=== PATIENT | female | born 1990 | race Caucasian/White ===

== ENCOUNTER 2017-04-07 14:22 | Emergency (ER) | payer MEDICAID, SELFPAY ==
[2017-04-07 14:23] VITALS: BP 108/76; PULSE 83; RESP 14; TEMP 36.5; O2SAT 100; BMI 17.9
[2017-04-07] MEDS: Fluconazole 100 MG Tablet 150 MG PO (14:56)
[2017-04-07 14:57] LABS: White Blood Cells 0 SEEN /hpf (0-5)
[2017-04-07 15:04] LABS: Color, Urine Yellow (Yellow); Glucose, Dipstick Normal (Normal); Internal QC Validated? YES +Cl - CLEAR BKGD; Ketone-Dipstick 5 mg/dl (Negative); Leukocyte Esterase-Dipstick Negative /ul (Negative); Nitrite-Dipstick Negative (Negative); Occult Blood-Urine 25 /ul (Negative); Pregnancy, Urine Negative Negative; Protein-Dipstick Negative (Negative); Urine Bilirubin Dipstick Negative (Negative); Urine Clarity Clear (Clear); Urine Urobilinogen Normal (Normal)
[2017-04-07 15:09] LABS: Bacteria RARE /hpf (None Seen); Mucous, Urine 2+ /hpf (<or=2+); Red Blood Cells-Urine 0-5 SEEN /hpf (0-5); Squamous Epithelial Cells - UA 0-5 SEEN /hpf (5-10)
--- NOTE | 2017-04-07 15:13 | ED.DCSUM_ITS ---
- ER Visit Summary Date of Service: 04/07/17 Chief Complaint: Pelvic pain History of Present Illness: The patient is a [address] Wu and Dr. Alisha Pena. She reports that she has pelvic pain that began today. It is intermittent cramping pain lasts 5 seconds at a time. Zeta 10 at worst and she is pain-free currently. Is worsened by nothing and relieved by nothing. She reports she has vaginal bleeding today that began similar to her. And is now just spotting. She denies any vaginal discharge. No dysuria or frequency. She reports that she has had external vaginal itching similar to when she has had yeast infections in the past. She is taken to days of Monistat vaginal suppositories. Physical Examination: Vitals: Stable. Afebrile. General: Well-nourished and well-developed. Head: Normocephalic atraumatic. Neck: Supple, no lymphadenopathy. No JVD. Nontender. Cardiovascular: Regular rate and rhythm. No murmurs. Respiratory: No respiratory distress. Clear to auscultation bilaterally. Abdominal: Soft, nontender, nondistended, normal bowel sounds. No guarding, rebound, or peritoneal signs. Pelvic: Refused Back: Nontender. Extremities: Nontender, no edema. Skin: Normal color, no rash. Neurologic: Alert and oriented ?3. Cranial nerves II through XII are intact. Normal strength and sensation. Psych: Normal affect. Test Results: UA is normal. test is negative. GC and Chlamydia are negative. Emergency Department Course and Treatment: Patient is treated with Diflucan p.o. She refused pain medications. Treatment Plan: She will be discharged instructions to follow-up Dr. Alisha Pena in 5 days as previously scheduled. Return to the emergency department for any worsening symptoms. Disposition: To home in improved and stable condition. Impression: 1. Dysfunctional uterine bleeding. This note was generated with [employer] dictation software. It may contain incorrect words, spelling, and punctuation that were not noted in review of the chart prior to signing ED Disposition - Plan for ED Patient: Disposition: Home or Assisted Living Chief Complaint: Female C/O Instructions: ED Pelvic Pain [facility] Referrals: Morenita Mosqueda MD [STAFF PHYSICIAN] - Keep Ruth appointment
[2017-04-07 17:50] LABS: Chlamydia Trachomatis by PCR Negative (Negative); Neisserai gonorrhoeae by PCR Negative (Negative); Probe Check PASS; Sample Adequacy Control PASS; Specimen Processing Control PASS
== END 2017-04-07 15:38 | disposition home or self-care (01) ==
PROVIDERS: Emergency Provider Emergency Medicine; Family Provider Student in an Organized Health Care Education/Training Program; PCP Student in an Organized Health Care Education/Training Program
DX: N93.8 Other specified abnormal uterine and vaginal bleeding (principal); R10.2 Pelvic and perineal pain; R11.0 Nausea; N89.8 Other specified noninflammatory disorders of vagina
CPT/HCPCS: 81001; 81025; 87491; 87591; 99282

== ENCOUNTER 2017-04-22 13:05 | Emergency (ER) | payer MEDICAID, SELFPAY ==
[2017-04-22 13:06] VITALS: BP 123/77; PULSE 94; RESP 18; TEMP 36.4; O2SAT 100; BMI 17.9
--- NOTE | 2017-04-22 15:08 | ED.VISSUMM ---
- ER Visit Summary Date of Service: 04/22/17 Chief Complaint: Vaginal itching History of Present Illness: The patient is a 26 F presenting with vaginal itching ?3 weeks. Patient has been seen in the ED, urgent care, and her PHYSICAL DIRECTOR's office. She states she has had multiple tests including testing for STDs, UTIs, yeast infections. She states all of these tests have come back negative. She was treated for a yeast infection although she was told it was likely not a yeast infection. Her last period was 1 month ago. Denies dysuria, abdominal pain, vaginal discharge, vaginal bleeding. She states she has tried Benadryl for the itching. She denies any new soaps, detergents, or other irritants. Physical Examination: Vitals are stable. Patient is afebrile. Alert no acute distress. HEENT exam is unremarkable. Lungs are clear and equal bilaterally. Heart is regular rate and rhythm. Abdomen is soft nontender nondistended. No rebound or guarding. : mild vaginal discharge, no CMT, no adnexal tenderness, no rash Extremities are unremarkable. Skin is warm and dry. Remainder of exam is unremarkable. Emergency Department Course and Treatment: Urinalysis is unremarkable. HCG negative. Patient is advised to change her soaps and detergents. She is given prescription for Vistaril. She is advised to follow-up with her PHYSICAL DIRECTOR. Advised return to ED for worsening complaints. Disposition: Discharge home Impression: Vaginal itching This note was generated with [employer] dictation software. It may contain incorrect words, spelling, and punctuation that were not noted in review of the chart prior to signing ED Disposition - Plan for ED Patient: Chief Complaint: Female C/O Instructions: ED Pelvic Pain [facility] Prescriptions: HydrOXYzine ROB [Vistaril] 25 mg PO TID PRN PRN #20 capsule PRN Reason: Itching Referrals: Elfego Wu DO [Primary Care Provider] - Morenita Mosqueda MD [STAFF PHYSICIAN] -
--- NOTE | 2017-04-22 15:11 | ED.DCSUM_ITS ---
- ER Visit Summary Date of Service: 04/22/17 Chief Complaint: Vaginal itching History of Present Illness: The patient is a 26 F presenting with vaginal itching ?3 weeks. Patient has been seen in the ED, urgent care, and her PUPPY TRAINER' s office. She states she has had multiple tests including testing for STDs, UTIs, yeast infections. She states all of these tests have come back negative. She was treated for a yeast infection although she was told it was likely not a yeast infection. Her last period was 1 month ago. Denies dysuria, abdominal pain, vaginal discharge, vaginal bleeding. She states she has tried Benadryl for the itching. She denies any new soaps, detergents, or other irritants. Physical Examination: Vitals are stable. Patient is afebrile. Alert no acute distress. HEENT exam is unremarkable. Lungs are clear and equal bilaterally. Heart is regular rate and rhythm. Abdomen is soft nontender nondistended. No rebound or guarding. : mild vaginal discharge, no CMT, no adnexal tenderness, no rash Extremities are unremarkable. Skin is warm and dry. Remainder of exam is unremarkable. Emergency Department Course and Treatment: Urinalysis is unremarkable. HCG negative. Patient is advised to change her soaps and detergents. She is given prescription for Vistaril. She is advised to follow-up with her PUPPY TRAINER. Advised return to ED for worsening complaints. Disposition: Discharge home Impression: Vaginal itching This note was generated with [employer] dictation software. It may contain incorrect words, spelling, and punctuation that were not noted in review of the chart prior to signing ED Disposition - Plan for ED Patient: Chief Complaint: Female C/O Instructions: ED Pelvic Pain [facility] Prescriptions: HydrOXYzine ROB [Vistaril] 25 mg PO TID PRN PRN #20 capsule PRN Reason: Itching Referrals: Elfego Wu DO [Primary Care Provider] - Morenita Mosqueda MD [STAFF PHYSICIAN] -
[2017-04-22 15:20] LABS: Bacteria 0 SEEN /hpf (None Seen); Mucous, Urine 0 SEEN /hpf (<or=2+); Red Blood Cells-Urine 0 SEEN /hpf (0-5)
[2017-04-22 15:26] LABS: Color, Urine Yellow (Yellow); Glucose, Dipstick Normal (Normal); Ketone-Dipstick Negative (Negative); Leukocyte Esterase-Dipstick 25 /ul (Negative); Nitrite-Dipstick Negative (Negative); Occult Blood-Urine 10 /ul (Negative); Protein-Dipstick Negative (Negative); Urine Bilirubin Dipstick Negative (Negative); Urine Clarity Clear (Clear); Urine Urobilinogen Normal (Normal)
[2017-04-22 15:28] LABS: Internal QC Validated? YES +Cl - CLEAR BKGD; Pregnancy, Urine Negative Negative
--- NOTE | 2017-04-22 15:30 | ED.DEP ---
ED Disposition - Plan for ED Patient: Chief Complaint: Female C/O Instructions: ED Pelvic Pain [facility] Prescriptions: HydrOXYzine ROB [Vistaril] 25 mg PO TID PRN PRN #20 capsule PRN Reason: Itching Referrals: Elfego Wu DO [Primary Care Provider] - Morenita Mosqueda MD [STAFF PHYSICIAN] -
[2017-04-22 15:35] LABS: Squamous Epithelial Cells - UA 0-5 SEEN /hpf (5-10); White Blood Cells 0-5 SEEN /hpf (0-5)
[2017-04-22 16:00] VITALS: BP 114/70; PULSE 80; RESP 18; O2SAT 98
== END 2017-04-22 16:06 | disposition home or self-care (01) ==
LOC: ED 15:51
PROVIDERS: Emergency Provider Emergency Medicine; Family Provider Student in an Organized Health Care Education/Training Program; PCP Student in an Organized Health Care Education/Training Program
DX: N89.8 Other specified noninflammatory disorders of vagina (principal)
CPT/HCPCS: 81001; 81025; 99282

== ENCOUNTER → 2017-05-07 16:01 | Outpatient (CLI) | payer MEDICAID, SELFPAY ==
[2017-05-07 18:39] LABS: Bacteria 0 SEEN /hpf (None Seen)
[2017-05-07 19:53] LABS: Color, Urine Yellow (Yellow); Glucose, Dipstick Normal (Normal); Ketone-Dipstick Negative (Negative); Leukocyte Esterase-Dipstick 100 /ul (Negative); Nitrite-Dipstick Negative (Negative); Occult Blood-Urine 10 /ul (Negative); Protein-Dipstick 15 mg/dl (Negative); Urine Bilirubin Dipstick Negative (Negative); Urine Clarity Clear (Clear); Urine Urobilinogen Normal (Normal)
[2017-05-07 20:00] LABS: Mucous, Urine 1+ /hpf (<or=2+); Red Blood Cells-Urine 0-5 SEEN /hpf (0-5); Squamous Epithelial Cells - UA 5-10 SEEN /hpf (5-10); White Blood Cells 0-5 SEEN /hpf (0-5)
[2017-05-07 23:31] LABS: Chlamydia Trachomatis by PCR Negative (Negative); Neisserai gonorrhoeae by PCR Negative (Negative); Probe Check PASS; Sample Adequacy Control PASS; Specimen Processing Control PASS
[2017-05-08 09:37] LABS: HIV - WCH Non-Reactive (Nonreactive)
[2017-05-09 14:39] LABS: HEPATITIS B SURFACE AG Negative (Negative); Hep B Surface Antibodies Reactive (.)
== END ==
PROVIDERS: Family Provider Student in an Organized Health Care Education/Training Program; PCP Student in an Organized Health Care Education/Training Program; Visit Provider Physician Assistant Surgical
DX: Z20.2 Contact with and (suspected) exposure to infections with a predominantly sexual mode of transmission (principal)
CPT/HCPCS: 36415; 86703; 86706; 87340

== ENCOUNTER → 2017-05-07 18:37 | Outpatient (CLI) | payer MEDICAID, SELFPAY | PROVIDERS: Family Provider Student in an Organized Health Care Education/Training Program; PCP Student in an Organized Health Care Education/Training Program; Visit Provider Physician Assistant Surgical | DX: Z20.2 Contact with and (suspected) exposure to infections with a predominantly sexual mode of transmission (principal) | CPT/HCPCS: 36415; 81001; 86703; 86706; 87086; 87088; 87110; 87140; 87340; 87491; 87591 ==

== ENCOUNTER → 2017-05-16 18:34 | Outpatient (CLI) | payer MEDICAID, SELFPAY | PROVIDERS: Family Provider Student in an Organized Health Care Education/Training Program; PCP Student in an Organized Health Care Education/Training Program; Visit Provider Obstetrics & Gynecology | DX: N76.0 Acute vaginitis (principal); N77.1 Vaginitis, vulvitis and vulvovaginitis in diseases classified elsewhere ==

== ENCOUNTER 2017-06-02 19:30 | Emergency (ER) | payer MEDICAID, SELFPAY ==
[2017-06-02 19:31] VITALS: BP 132/80; PULSE 112; RESP 24; TEMP 36.9; O2SAT 96; BMI 16.9
[2017-06-02] MEDS: Ondansetron 4 MG/2 ML Vial IV (20:14)
[2017-06-02] MEDS: 0.9% Normal Saline 1,000 ML 1000 ML IV (20:14)
[2017-06-02] MEDS: Ketorolac 15 MG/ML Vial IV (20:17)
[2017-06-02 20:23] LABS: Absolute Lymphocyte Count 1.73 X10^3/ul (0.83-4.51); Absolute Neutrophil Count 6.8 X10^3/uL (2.0-7.7); Basophil# 0.01 X10^3/uL; Basophil% 0.1 % (0-1); Hematocrit 45.2 % (37-47); Hemoglobin 15.2 g/dl (12.0-15.0); Lymphocyte # 1.73 X10^3/ul (4.0); Lymphocyte % 19.3 % (19-41); Mean Corp Hgb Conc 33.6 g/gl (32-36); Mean Corpuscular Hgb 32.1 pg (27.0-32.0); Mean Corpuscular Volume 95.6 fL (81-99); Mean Platelet Vol. 9.5 fl (6.2-12.0); Monocyte# 0.46 X10^3/uL; Monocyte% 5.1 % (0-10); Neutrophil # 6.77 X10^3/uL (2.7-7.7); Neutrophil % 75.4 % (47-70); POSITIVE COUNT NO; POSITIVE DIFFERENTIAL NO; POSITIVE MORPHOLOGY NO; Platelet Count 269 K/mm3 (150-450); RBC Distribution Width CV 13.1 % (11.6-14.6); RBC Distribution Width SD 45.6 fl (35.1-43.9); Red Blood Count 4.73 M/mm3 (4.2-5.4)
[2017-06-02 20:36] LABS: AST(SGOT) 18 U/L (15-37); Alanine Aminotransfer ALT/SGPT 20 U/L (13-56); Albumin, Serum 3.8 g/dL (3.2-5.0); Alkaline Phosphatase 64 U/L (45-117); Anion Gap 8 (5-15); BUN 12 mg/dL (7-18); BUN/Creat Ratio 15.8 RATIO (10-20); Bilirubin, Direct 0.15 mg/dL (0.00-0.30); Calcium,Total 8.5 mg/dL (8.5-10.1); Chloride 109 mmol/L (98-107); Creatinine, Serum 0.76 mg/dL (0.55-1.02); EST Glomerular Filtration Rate 98 mL/min (>60); Est Glom Filt Rate - Afr Amer 119 mL/min (>60); Estimated Creatinine Clearance 77.35 ml/min; Globulin 4.2 g/dL (2.2-4.2); Glucose 88 mg/dL (74-106); Lipase 64 U/L (73-393); Potassium 3.4 mmol/L (3.5-5.1); Sodium Level 141 mmol/L (136-145)
[2017-06-02 20:53] LABS: Pregnancy, Serum, hCG Quali. NEGATIVE Negative (0-9 Nonpreg)
[2017-06-02 21:13] LABS: Amphetamine Urine VISTA NEGATIVE (<1000 ng/mL); Barbiturate Urine VISTA NEGATIVE (< 200 ng/mL); Benzodiazepine Urine VISTA NEGATIVE (< 200 ng/mL); Cocaine Urine VISTA NEGATIVE (< 300 ng/mL); Ecstacy Urine VISTA NEGATIVE (< 500 ng/mL); Methadone Urine VISTA NEGATIVE (< 300 ng/mL); PCP Urine VISTA NEGATIVE (< 25 ng/mL); THC Urine VISTA NEGATIVE (< 50 ng/mL); Vista UDS pH Range 5
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
[2017-06-02 22:50] VITALS: BP 100/60; PULSE 89; RESP 15; O2SAT 99
[2017-06-02] MEDS: Ondansetron ODT 4 MG Tablet PO (22:56)
== END 2017-06-02 22:59 | disposition home or self-care (01) ==
PROVIDERS: Emergency Provider Emergency Medicine; Family Provider Student in an Organized Health Care Education/Training Program; PCP Student in an Organized Health Care Education/Training Program
DX: R11.2 Nausea with vomiting, unspecified (principal); R42 Dizziness and giddiness; R10.816 Epigastric abdominal tenderness; R10.819 Abdominal tenderness, unspecified site
CPT/HCPCS: 80048; 80076; 80307; 83690; 84703; 85025; 96361; 96365; 96375; 99283; J7030; A4216; J2405; J3490

== ENCOUNTER 2017-09-30 12:51 | Emergency (ER) | payer MEDICAID, SELFPAY ==
[2017-09-30 12:53] VITALS: BP 117/80; PULSE 89; RESP 18; TEMP 36.6; O2SAT 98; BMI 19.2
--- NOTE | 2017-09-30 13:35 | ED.VISSUMM ---
- ER Visit Summary Date of Service: 09/30/17 Chief Complaint: Headache, nausea vomiting History of Present Illness: The patient is a 27 F who presents with the above symptoms. She states this started yesterday. She had a headache last night and tried Excedrin but it did not help. She had some nausea and vomiting as well as diarrhea today. No urinary symptoms. She denies any abdominal pain with this. She has not had a fever. Physical Examination: Vital signs reviewed. HEENT exam unremarkable. Heart is regular rate and rhythm without murmurs. Lungs are clear to auscultation. Abdomen is soft and nontender. Extremities reveal no edema. Skin exam normal. Neurologic exam normal. Test Results: Urinalysis reveals no infection or blood. HCG negative Emergency Department Course and Treatment: Patient was given Compazine, Benadryl and saline. She feels much better. She will be discharged with naproxen and Zofran ODT. Will follow up with her PCP Treatment Plan: [] Disposition: Discharge Impression: Migraine headache This note was generated with [employer] dictation software. It may contain incorrect words, spelling, and punctuation that were not noted in review of the chart prior to signing ED Disposition - Plan for ED Patient: Chief Complaint: Nausea/Vomiting/Diarrhea Referrals: Elfego Wu DO [Primary Care Provider] -
[2017-09-30] MEDS: 0.9% Normal Saline 1,000 ML 999 ML IV (13:47)
[2017-09-30] MEDS: DiphenhydrAMINE 50 MG/ML Syringe 25 MG IV (13:50)
[2017-09-30] MEDS: proCHLORPERazine 10 MG/2 ML Vial IV (13:50)
[2017-09-30 14:32] LABS: Bacteria 0 SEEN /hpf (None Seen); Red Blood Cells-Urine 0 SEEN /hpf (0-5); White Blood Cells 0 SEEN /hpf (0-5)
[2017-09-30 14:46] LABS: Color, Urine Yellow (Yellow); Glucose, Dipstick Normal (Normal); Ketone-Dipstick 50 mg/dl (Negative); Leukocyte Esterase-Dipstick Negative /ul (Negative); Nitrite-Dipstick Negative (Negative); Occult Blood-Urine 10 /ul (Negative); Protein-Dipstick 15 mg/dl (Negative); Urine Bilirubin Dipstick Negative (Negative); Urine Clarity Clear (Clear); Urine Urobilinogen Normal (Normal); Urine pH 6.5 (5.0 - 8.0)
[2017-09-30 14:56] LABS: Internal QC Validated? YES +Cl - CLEAR BKGD; Pregnancy, Urine Negative Negative
--- NOTE | 2017-09-30 14:59 | ED.DEP ---
ED Disposition - Plan for ED Patient: Disposition: Home or Assisted Living Chief Complaint: Nausea/Vomiting/Diarrhea Instructions: ED Diet Vomiting Diarrhea Prescriptions: Ondansetron [Zofran Odt] 4 mg PO Q8H PRN PRN #10 tab PRN Reason: Nausea Naproxen [Naprosyn] 500 mg PO BID PRN #20 tab Referrals: Elfego Wu DO [Primary Care Provider] -
[2017-09-30 15:05] LABS: Mucous, Urine 1+ /hpf (<or=2+); Squamous Epithelial Cells - UA 0-5 SEEN /hpf (5-10)
[2017-09-30 15:14] VITALS: BP 110/78; PULSE 80; RESP 14; O2SAT 98
[2017-09-30 15:15] VITALS: BP 97/54; PULSE 89; RESP 13; O2SAT 100
== END 2017-09-30 15:15 | disposition home or self-care (01) ==
PROVIDERS: Emergency Provider Emergency Medicine; Family Provider Student in an Organized Health Care Education/Training Program; PCP Student in an Organized Health Care Education/Training Program
DX: G43.909 Migraine, unspecified, not intractable, without status migrainosus (principal)
CPT/HCPCS: 81001; 81025; 96361; 96374; 96375; 99282; J7030; A4216

== ENCOUNTER 2017-10-31 12:26 | Emergency (ER) | payer MEDICAID, SELFPAY ==
[2017-10-31 12:26] VITALS: BP 117/81; PULSE 75; RESP 16; TEMP 36.4; O2SAT 99; BMI 18.6
[2017-10-31 12:58] LABS: Bacteria 0 SEEN /hpf (None Seen); Mucous, Urine 0 SEEN /hpf (<or=2+); Red Blood Cells-Urine 0 SEEN /hpf (0-5); Squamous Epithelial Cells - UA 0 SEEN /hpf (5-10); White Blood Cells 0 SEEN /hpf (0-5)
[2017-10-31 13:00] LABS: Color, Urine Yellow (Yellow); Glucose, Dipstick Normal (Normal); Ketone-Dipstick 5 mg/dl (Negative); Leukocyte Esterase-Dipstick 25 /ul (Negative); Nitrite-Dipstick Negative (Negative); Occult Blood-Urine 25 /ul (Negative); Protein-Dipstick Negative (Negative); Specific Gravity, Urine 1.015 (1.002-1.030); Urine Bilirubin Dipstick Negative (Negative); Urine Clarity Clear (Clear); Urine Urobilinogen Normal (Normal); Urine pH 6.5 (5.0 - 8.0)
[2017-10-31 13:01] LABS: Internal QC Validated? YES +Cl - CLEAR BKGD; Pregnancy, Urine Negative Negative
--- NOTE | 2017-10-31 15:26 | ED.DCSUM_ITS ---
- ER Visit Summary Date of Service: 10/31/17 Chief Complaint: Nausea History of Present Illness: The patient is a 27 F presenting with 2 days of nausea without vomiting or diarrhea. No abdominal pain. No pelvic pain or vaginal bleeding. No urinary symptoms. No headaches or confusion. No recent travel or sick contacts. No fever or chills. Physical Examination: Vitals are within normal limits. She is not in distress. Mucous membranes are moist. Neck is supple. No meningeal findings. Heart tones are regular and without murmur. Lungs are clear bilaterally. Abdomen is soft and nontender. She has no focal or lateralizing neuro findings. She has no rash. No petechiae. Strong pulses in all extremities. Mental status examination is normal. Test Results: HCG is negative. Urinalysis essentially unremarkable except for ketones and trace blood. Emergency Department Course and Treatment: She has no urinary symptoms. No back pain. No abdominal pain or tenderness. Exact cause of her nausea is not clear. She was observed here and feels much better. I will treat her with a short course of Zofran and she will follow up closely with her doctor for further testing and return here if any worse. She was instructed to return if she develops any abdominal pain, fever, or other concerning symptoms. Treatment Plan: Zofran as needed Disposition: Home in stable condition Impression: Initial encounter nausea of uncertain etiology This note was generated with [employer] dictation software. It may contain incorrect words, spelling, and punctuation that were not noted in review of the chart prior to signing ED Disposition - Plan for ED Patient: Chief Complaint: Nausea/Vomiting Instructions: ED Nausea Vomiting Prescriptions: Ondansetron HCl [Zofran] 4 mg PO TID PRN #15 tablet PRN Reason: Nausea Referrals: Elfego Wu DO [Primary Care Provider] - As soon as possible
[2017-10-31 15:31] VITALS: BP 108/69; PULSE 75; RESP 16; O2SAT 98
== END 2017-10-31 15:32 | disposition home or self-care (01) ==
LOC: ED 13:01
PROVIDERS: Emergency Provider Emergency Medicine; Family Provider Student in an Organized Health Care Education/Training Program; PCP Student in an Organized Health Care Education/Training Program
DX: R11.0 Nausea (principal); G43.909 Migraine, unspecified, not intractable, without status migrainosus
CPT/HCPCS: 81001; 81025; 99282

== ENCOUNTER 2018-01-20 09:08 | Emergency (ER) | payer MEDICAID, SELFPAY ==
[2018-01-20 09:09] VITALS: BP 140/83; PULSE 71; RESP 18; TEMP 36.2; O2SAT 99; BMI 18.3
--- NOTE | 2018-01-20 09:23 | CT_ITS ---
STUDY: CT ABDOMEN AND PELVIS WITH CONTRAST REASON FOR EXAM: Female, 27 years old. Lower abdominal pain with radiation towards the back. RADIATION DOSAGE (If Supplied By Facility): CTDIvol = ( 5.78 ) mGy, DLP = ( 224.89 ) mGycm TECHNIQUE: Transaxial images were obtained from the dome of the diaphragm to the symphysis pubis with oral contrast. 75ml ml of Isovue 300 contrast was administered. Sagittal and coronal images were reconstructed. Individualized dose optimization techniques were used for this CT. COMPARISON: None. FINDINGS: The visualized lung bases are unremarkable. The visualized portions of the heart are within normal limits. Normal liver. Normal gallbladder and extrahepatic biliary system. Normal spleen. Normal pancreas. Normal bilateral adrenal glands. Normal right kidney. Normal left kidney. Normal visualized stomach. Normal small intestine. Normal colon. The appendix is visualized and appears normal. Normal abdominal aorta. Normal inferior vena cava. Normal retroperitoneum. Normal urinary bladder. Small amount of free fluid in the cul-de-sac. Dominant follicle in the right ovary measuring 1.2 cm x 1.4 cm. Follicles are also seen in the left ovary. There is a small umbilical hernia containing fat. Normal osseous structures. CT/Abdomen/Pelvis WITH Contrast IMPRESSION: Follow-up are seen in both ovaries more prominent on the right side. Small amount of free fluid in the cul-de-sac. Electronically Signed: Juan J Mariano MD at 11:18 EST Tel [phone], Service support ,
--- NOTE | 2018-01-20 09:32 | ED.DCSUM_ITS ---
- ER Visit Summary Date of Service: 01/20/18 Chief Complaint: Abdominal pain History of Present Illness: The patient is a 27 F who states this morning she had a sudden onset periumbilical pain described as sharp and severe that radiated both sides and into her lower back. She notes nausea when the pain was severe. Pain is worse with movement and with car ride. Last menstrual period January 02 and was a normal cycle for her. She is on oral contraceptives. No significant surgical history or medical history. No history of ovarian cyst. Last bowel movement was yesterday and normal per her. She states this feels a little bit like she needs to have a bowel movement and tried but did not. She states that this seems more severe than that type of sensation. She is under care of her family doctor for a rash on her arms that intermittently flare. No formal diagnosis has been given Physical Examination: Afebrile vital signs are stable Gen: Well-nourished well-developed Head: Normocephalic atraumatic Eyes: Perrl EOMI ENT: TMs clear no rhinorrhea moist mucous membranes Neck: Supple no lymphadenopathy no JVD nontender CVS: Regular rate rhythm no murmurs normal S1-S2 Respiratory: No distress clear to auscultation bilaterally chest nontender Abdomen: Soft to palpation periumbilical region without rebound nondistended normal bowel sounds no masses Back: Nontender Extremity: Nontender no edema Skin: Normal color no rash Neuro: alert orientated ?3 CN II-XII intact normal strength sensation reflexes gait cerebellar Psych: Normal affect normal mood Test Results: CBC CMP lipase urine test were negative. CT abdomen pelvis showed no acute findings. Emergency Department Course and Treatment: Patient be discharged home with supportive care. I believe a lot of her symptoms are related to the large amount of gas she has. Patient was given return instructions and notes understanding. Impression: 1. Acute abdominal pain This note was generated with [employer] dictation software. It may contain incorrect words, spelling, and punctuation that were not noted in review of the chart prior to signing ED Disposition - Plan for ED Patient: Disposition: Home or Assisted Living Chief Complaint: Abd Pain Instructions: ED Abdominal Pain Unkn Cause Referrals: Elfego Wu, [Primary Care Provider] - 1-2 Days if not improving
[2018-01-20] MEDS: Ondansetron 4 MG/2 ML Vial IV (09:42)
[2018-01-20] MEDS: Ketorolac 30 MG/ML Syringe IV (09:42)
[2018-01-20 09:59] LABS: Absolute Lymphocyte Count 2.01 X10^3/ul (0.83-4.51); Basophil# 0.01 X10^3/uL; Basophil% 0.2 % (0-1); Eosinophil# 0.05 X10^3/uL; Eosinophils% 1.1 % (0-5); Hematocrit 41.3 % (37-47); Hemoglobin 14.2 g/dl (12.0-15.0); Lymphocyte # 2.01 X10^3/ul (4.0); Lymphocyte % 44.8 % (19-41); Mean Corp Hgb Conc 34.4 g/gl (32-36); Mean Corpuscular Hgb 31.6 pg (27.0-32.0); Mean Corpuscular Volume 91.8 fL (81-99); Mean Platelet Vol. 9.9 fl (6.2-12.0); Monocyte# 0.42 X10^3/uL; Monocyte% 9.4 % (0-10); Neutrophil # 1.99 X10^3/uL (2.7-7.7); Neutrophil % 44.3 % (47-70); Platelet Count 208 K/mm3 (150-450); RBC Distribution Width CV 12.6 % (11.6-14.6); RBC Distribution Width SD 42.2 fl (35.1-43.9); White Blood Count 4.5 K/mm3 (4.4-11.0)
[2018-01-20 10:05] LABS: POSITIVE COUNT NO; POSITIVE DIFFERENTIAL NO; POSITIVE MORPHOLOGY NO
[2018-01-20 10:11] LABS: ALB/GLOB Ratio 0.9 RATIO (0.9-2.4); AST(SGOT) 19 U/L (15-37); Alanine Aminotransfer ALT/SGPT 23 U/L (13-56); Albumin, Serum 3.5 g/dL (3.2-5.0); Alkaline Phosphatase 69 U/L (45-117); Anion Gap 6 (5-15); BUN 10 mg/dL (7-18); BUN/Creat Ratio 15.7 RATIO (10-20); Calcium,Total 8.4 mg/dL (8.5-10.1); Chloride 106 mmol/L (98-107); Creatinine, Serum 0.64 mg/dL (0.55-1.02); EST Glomerular Filtration Rate 119 mL/min (>60); Est Glom Filt Rate - Afr Amer 144 mL/min (>60); Estimated Creatinine Clearance 95.38 ml/min; Globulin 3.7 g/dL (2.2-4.2); Glucose 86 mg/dL (74-106); Lipase 80 U/L (73-393); Potassium 3.5 mmol/L (3.5-5.1); Protein, Total 7.2 g/dL (6.4-8.2); Sodium Level 138 mmol/L (136-145)
[2018-01-20 10:22] LABS: Color, Urine Yellow (Yellow); Glucose, Dipstick Normal (Normal); Internal QC Validated? YES +Cl - CLEAR BKGD; Ketone-Dipstick Negative (Negative); Leukocyte Esterase-Dipstick 25 /ul (Negative); Nitrite-Dipstick Negative (Negative); Occult Blood-Urine 25 /ul (Negative); Protein-Dipstick Negative (Negative); Specific Gravity, Urine 1.015 (1.002-1.030); Urine Bilirubin Dipstick Negative (Negative); Urine Clarity Sl. Cloudy (Clear); Urine Urobilinogen Normal (Normal)
[2018-01-20 10:25] LABS: Pregnancy, Urine Negative Negative
[2018-01-20 10:33] LABS: Bacteria 1+ /hpf (None Seen); Mucous, Urine 1+ /hpf (<or=2+); Red Blood Cells-Urine 0-5 SEEN /hpf (0-5); Squamous Epithelial Cells - UA 0-5 SEEN /hpf (5-10); White Blood Cells 0-5 SEEN /hpf (0-5)
[2018-01-20 11:10] VITALS: RESP 18
== END 2018-01-20 12:29 | disposition home or self-care (01) ==
PROVIDERS: Emergency Provider Emergency Medicine; Family Provider Student in an Organized Health Care Education/Training Program; PCP Student in an Organized Health Care Education/Training Program
DX: R10.33 Periumbilical pain (principal); M54.5 Low back pain; R11.0 Nausea; R21 Rash and other nonspecific skin eruption; Z79.3 Long term (current) use of hormonal contraceptives
CPT/HCPCS: 74177; 80053; 81001; 81025; 83690; 85025; 96374; 96375; 99283; Q9967; A4216; J2405

== ENCOUNTER → 2018-02-18 15:23 | Outpatient (CLI) | payer MEDICAID, SELFPAY ==
[2018-01-20 09:09] VITALS: BMI 18.3
== END ==
PROVIDERS: Visit Provider Obstetrics & Gynecology
DX: N76.1 Subacute and chronic vaginitis (principal); N77.1 Vaginitis, vulvitis and vulvovaginitis in diseases classified elsewhere
CPT/HCPCS: 87070; 87075; 87076; 87205

== ENCOUNTER → 2018-03-21 13:58 | Outpatient (CLI) | payer MEDICAID, SELFPAY | PROVIDERS: Visit Provider Obstetrics & Gynecology | DX: N76.1 Subacute and chronic vaginitis (principal) | CPT/HCPCS: 87070; 87075; 87077; 87205 ==

== ENCOUNTER 2018-04-24 12:15 | Emergency (ER) | payer MEDICAID, SELFPAY ==
[2018-04-24 12:17] VITALS: BP 149/95; PULSE 94; RESP 18; TEMP 36.8; O2SAT 100; BMI 18.4
--- NOTE | 2018-04-24 13:05 | ED.DCSUM_ITS ---
- ER Visit Summary Date of Service: 04/24/18 Chief Complaint: Vaginal itching History of Present Illness: The patient is a 27 F urgency department vaginal itching. Patient states that she was recently treated for bacterial vaginosis. She states shortly thereafter, she began have some vaginal itching and some vaginal pain. She states she called her PRIMARY CARE PROVIDER. She was given Diflucan. States normally, she gets yeast, it does resolve almost immediately. She took it does not feel any better. She has had been having some scant vaginal discharge. She is been sexually active for the first time in over a year. She denies any bleeding. She denies any urinary symptoms. Physical Examination: Vital signs reviewed General: Well-nourished, well-developed Head: Normocephalic, atraumatic Eyes: Pupils equal and reactive, extraocular muscles intact Neck, supple, no lymphadenopathy Heart: Regular rate and rhythm Respiratory: No distress, clear bilaterally Abdomen: Soft, nontender, nondistended, no peritoneal signs Back: Nontender Extremities: Nontender, no edema, no cords Skin: Normal color no rash Neuro: Alert and oriented, no focal or lateralizing deficits Test Results: [] Emergency Department Course and Treatment: [The patient symptoms do seem most consistent with yeast vaginitis. Urine was obtained. There is no evidence of infection. was negative. Pelvic exam was done with female nurse bin operator. The patient does have thick white adherent plaques on the introitus consistent with yeast. There is no excoriation. There is no discharge from the cervix. GC and gonorrhea were obtained but are still pending. I did discuss this with the patient. She does not want to wait for the results. She is really had no other symptoms were I feel she needs treated as she is already been treated recently. The patient will be discharged home with Diflucan prescription. Treatment Plan: [] Disposition: Discharge Impression: Yeast vaginitis This note was generated with [employer] dictation software. It may contain incorrect words, spelling, and punctuation that were not noted in review of the chart prior to signing ED Disposition - Plan for ED Patient: Instructions: Vaginal Infection: Yeast (Candidiasis) Prescriptions: Fluconazole [Diflucan] 150 mg PO X1 #1 tab Referrals: Kimi Paige MD [STAFF PHYSICIAN] -
[2018-04-24 13:15] LABS: Bacteria 0 SEEN /hpf (None Seen); Mucous, Urine 0 SEEN /hpf (<or=2+); Red Blood Cells-Urine 0 SEEN /hpf (0-5); Squamous Epithelial Cells - UA 0 SEEN /hpf (5-10); White Blood Cells 0 SEEN /hpf (0-5)
[2018-04-24 13:18] LABS: Color, Urine Yellow (Yellow); Glucose, Dipstick Normal (Normal); Ketone-Dipstick Negative (Negative); Leukocyte Esterase-Dipstick 25 /ul (Negative); Nitrite-Dipstick Negative (Negative); Occult Blood-Urine Negative /ul (Negative); Protein-Dipstick Negative (Negative); Urine Bilirubin Dipstick Negative (Negative); Urine Clarity Clear (Clear); Urine Urobilinogen Normal (Normal)
[2018-04-24 13:24] LABS: Internal QC Validated? YES +Cl - CLEAR BKGD; Pregnancy, Urine Negative Negative
[2018-04-24 15:53] LABS: Chlamydia Trachomatis by PCR Negative (Negative); Neisserai gonorrhoeae by PCR Negative (Negative); Probe Check PASS; Sample Adequacy Control PASS; Specimen Processing Control PASS
== END 2018-04-24 14:53 | disposition home or self-care (01) ==
PROVIDERS: Emergency Provider Emergency Medicine; Family Provider Student in an Organized Health Care Education/Training Program; PCP Student in an Organized Health Care Education/Training Program
DX: B37.3 Candidiasis of vulva and vagina (principal)
CPT/HCPCS: 81001; 81025; 87491; 87591; 99282

== ENCOUNTER 2018-07-07 20:21 | Emergency (ER) | payer MEDICAID, SELFPAY ==
[2018-07-07 20:22] VITALS: BP 121/75; PULSE 92; RESP 18; TEMP 36.7; O2SAT 99; BMI 18.6
--- NOTE | 2018-07-07 20:48 | ED.DCSUM_ITS ---
- ER Visit Summary Date of Service: 07/07/18 Chief Complaint: Rash History of Present Illness: The patient is a 28 F states she went tanning and after obtaining she applied lotion on her body. In Saturday she developed a rash. Says it itches. It is basically on her chest and neck abdomen upper and lower extremities. No prior history. No known allergies. She is currently on no medications. Physical Examination: Young female no acute distress. Vital signs are stable afebrile. HEENT exam unremarkable. No swelling of her lips or tongue. Neck as the rash which is raised. Consistent with a contact dermatitis. Lungs clear to auscultation bilaterally. Heart regular rhythm no murmur. Abdomen soft and nontender. Patient is moving all 4 extremities. She is a red raised rash in both upper and lower extremities with a contact dermatitis. Neurologically she is awake and alert. Test Results: None Emergency Department Course and Treatment: Rash consistent with allergic reaction. Started on prednisone 60 mg here and 40 mg a day for the next 6 days. Return if worse or follow-up if not improving. Treatment Plan: Prednisone daily for 6 days. Disposition: Discharge Impression: Acute skin rash secondary to allergic reaction This note was generated with [employer] dictation software. It may contain incorrect words, spelling, and punctuation that were not noted in review of the chart prior to signing ED Disposition - Plan for ED Patient: Referrals: Elfego Wu DO [Primary Care Provider] -
--- NOTE | 2018-07-07 20:48 | ED.DEP ---
ED Disposition - Plan for ED Patient: Disposition: Home or Assisted Living Instructions: ED Allergic Reaction General Other Prescriptions: Prednisone [Deltasone] 40 mg PO DAILY 6 Days tab Referrals: Elfego Wu DO [Primary Care Provider] - Additional Instructions: Rash consistent with allergic reaction most likely to the skin lotion. Prednisone daily until rash is gone. Follow-up with not improving.
[2018-07-07] MEDS: predniSONE 20 MG Tablet 60 MG PO (20:52)
== END 2018-07-07 20:55 | disposition home or self-care (01) ==
PROVIDERS: Emergency Provider Emergency Medicine; Family Provider Student in an Organized Health Care Education/Training Program; PCP Student in an Organized Health Care Education/Training Program
DX: R21 Rash and other nonspecific skin eruption (principal); T78.40XA Allergy, unspecified, initial encounter; X58.XXXA Exposure to other specified factors, initial encounter
CPT/HCPCS: 99283

== ENCOUNTER 2018-07-19 11:26 | Emergency (ER) | payer MEDICAID, SELFPAY ==
[2018-07-19 11:26] VITALS: BP 123/80; PULSE 89; RESP 16; TEMP 36.9; O2SAT 98; BMI 18.6
[2018-07-19 13:07] LABS: Bacteria 0 SEEN /hpf (None Seen); Mucous, Urine 0 SEEN /hpf (<or=2+); Red Blood Cells-Urine 0 SEEN /hpf (0-5); White Blood Cells 0 SEEN /hpf (0-5)
[2018-07-19 13:14] LABS: Color, Urine Yellow (Yellow); Glucose, Dipstick Normal (Normal); Ketone-Dipstick Negative (Negative); Leukocyte Esterase-Dipstick Negative /ul (Negative); Nitrite-Dipstick Negative (Negative); Occult Blood-Urine Negative /ul (Negative); Protein-Dipstick Negative (Negative); Urine Bilirubin Dipstick Negative (Negative); Urine Clarity Clear (Clear); Urine Urobilinogen Normal (Normal)
[2018-07-19 13:16] LABS: Internal QC Validated? YES +Cl - CLEAR BKGD; Pregnancy, Urine Negative Negative
[2018-07-19 13:21] LABS: Squamous Epithelial Cells - UA 0-5 SEEN /hpf (5-10)
--- NOTE | 2018-07-19 13:34 | ED.DCSUM_ITS ---
- ER Visit Summary Date of Service: 07/19/18 Chief Complaint: Vaginal discharge History of Present Illness: The patient is a 28 F who presents with a 4-day history of change in her physiologic vaginal discharge. She states the discharge seem to be more yellow in color and little bit heavier than normal. S he denies any itching or foul odor. She states after this started she developed some abdominal cramping. Last menstrual cycle was July 03 but was not typical for her. She did take Plan B 2 weeks ago. Physical Examination: Vital signs unremarkable. Patient sitting upright in bed no acute distress. Head neck examination normal. Heart is regular rate and rhythm. Lung sounds are clear. Abdomen is soft with no focal tenderness. Active bowel sounds are noted throughout. Patient deferred pelvic exam. She denies any lesions. Test Results: Urinalysis is normal. Urine test is negative. GC and Chlamydia were sent. If these return positive patient received a phone call in antibiotics will be ordered. Emergency Department Course and Treatment: I discussed the urinalysis and urine practiced with the patient. I advised her she would be notified if her gonorrhea or chlamydia test were positive. It may be that her hormone cycle is off after using the Plan B. She will follow with her SEWING MACHINE OPERATOR ZIPPER if not improving. Treatment Plan: [] Disposition: Discharge Impression: Vaginal discharge Addendum: Patient's chlamydia test returned positive. We have left a message to have her call the emergency department. She will have 2 options. She can return to the ED for meds only visit where she will receive Rocephin and Zithromax for we will call in a prescription to the pharmacy of her choice for cefixime and Zithromax. This note was generated with [email or web address] dictation software. It may contain incorrect words, spelling, and punctuation that were not noted in review of the chart prior to signing ED Disposition - Plan for ED Patient: Disposition: Home or Assisted Living Instructions: ED Pelvic Pain [facility] Referrals: Elfego Wu DO [Primary Care Provider] - Morenita Mosqueda MD [STAFF PHYSICIAN] - 1 Week if not improving
[2018-07-19 13:42] VITALS: BP 121/73; PULSE 79; RESP 18; O2SAT 98
[2018-07-19 15:07] LABS: Chlamydia Trachomatis by PCR POSITIVE (Negative); Neisserai gonorrhoeae by PCR Negative (Negative); Probe Check PASS; Sample Adequacy Control PASS; Specimen Processing Control PASS
--- NOTE | 2018-07-19 15:18 | ED.RN ---
Lab called to report positive chlamydia result. This RN called and left message with the pt to give us a call back.
--- NOTE | 2018-07-19 17:20 | ED.RN ---
PT WAS ASKED TO RETURN FOR MEDICATIONS PER DR. PRADO., VERBAL ORDERS WAS GIVEN FOR ROCEPHIN 250MG IM AND ZITHROMAX 1,000MG PO.
[2018-07-19] MEDS: Ceftriaxone 500 MG Vial 250 MG IM (17:44)
[2018-07-19] MEDS: Azithromycin 250 MG Tablet 1000 MG PO (17:47)
--- NOTE | 2018-07-19 17:58 | ED.RN ---
PT TOLERATED IM INJECTION, PT HAD NO FURTHER QUESTIONS. PT DEPARTED FROM ED.
== END 2018-07-19 13:43 | disposition home or self-care (01) ==
PROVIDERS: Emergency Provider Emergency Medicine; Family Provider Student in an Organized Health Care Education/Training Program; PCP Student in an Organized Health Care Education/Training Program
DX: N89.8 Other specified noninflammatory disorders of vagina (principal); R10.2 Pelvic and perineal pain
CPT/HCPCS: 81001; 81025; 87491; 87591; 96372; 99282

== ENCOUNTER 2018-08-06 22:08 | Emergency (ER) | payer MEDICAID, SELFPAY ==
[2018-08-06 22:10] VITALS: BP 116/76; PULSE 90; RESP 16; TEMP 36.7; O2SAT 100; BMI 17.9
--- NOTE | 2018-08-06 22:28 | ED.VISSUMM ---
- ER Visit Summary Date of Service: 08/06/18 Chief Complaint: Vaginal discharge History of Present Illness: The patient is a 28 F who presents with vaginal discharge. This is actually been going on for about 1 month. 3 weeks ago she was seen here in the emergency department and tested positive for chlamydia. She was treated with IM Rocephin and oral azithromycin. Her discharge improved but did not resolve. She also complains of some mild suprapubic abdominal discomfort. She would not really describe this as pain and thinks it may just be related to stress. She denies fevers chest pain shortness of breath nausea vomiting. She is basically just requesting to be retested for gonorrhea and chlamydia. Physical Examination: Afebrile vitals unremarkable Moist mucous membranes Heart regular rate and rhythm Lungs clear Abdomen soft nontender nondistended Test Results: Gonorrhea and Chlamydia negative Emergency Department Course and Treatment: Gonorrhea and Chlamydia negative as above. Patient advised to follow-up with gynecology and was discharged home. Treatment Plan: [] Disposition: Discharge Impression: Vaginal discharge This note was generated with [employer] dictation software. It may contain incorrect words, spelling, and punctuation that were not noted in review of the chart prior to signing ED Disposition - Plan for ED Patient: Referrals: Elfego Wu DO [Primary Care Provider] -
[2018-08-07 00:21] LABS: Chlamydia Trachomatis by PCR Negative (Negative); Neisserai gonorrhoeae by PCR Negative (Negative); Probe Check PASS; Sample Adequacy Control PASS; Specimen Processing Control PASS
--- NOTE | 2018-08-07 00:31 | ED.DEP ---
ED Disposition - Plan for ED Patient: Referrals: Elfego Wu DO [Primary Care Provider] - Kirstin Pena CNM [Certified Nurse Digital Account Coordinator] - Additional Instructions: You were seen today for vaginal discharge. Testing for gonorrhea and chlamydia was negative. I advised that he follow-up with gynecology. Return for any new or worsening symptoms.
== END 2018-08-07 00:37 | disposition home or self-care (01) ==
LOC: ED 22:32
PROVIDERS: Emergency Provider Emergency Medicine; Family Provider Student in an Organized Health Care Education/Training Program; PCP Student in an Organized Health Care Education/Training Program
DX: N89.8 Other specified noninflammatory disorders of vagina (principal); R10.30 Lower abdominal pain, unspecified; Z86.19 Personal history of other infectious and parasitic diseases
CPT/HCPCS: 87491; 87591; 99282

== ENCOUNTER 2018-10-14 19:55 | Emergency (ER) | payer MEDICAID, SELFPAY ==
[2018-10-14 19:55] VITALS: BP 124/82; PULSE 98; RESP 18; TEMP 36.4; O2SAT 97; BMI 18.5
[2018-10-14 22:34] LABS: Bacteria 0 SEEN /hpf (None Seen); Mucous, Urine 0 SEEN /hpf (<or=2+); Red Blood Cells-Urine 0 SEEN /hpf (0-5); Squamous Epithelial Cells - UA 0 SEEN /hpf (5-10); White Blood Cells 0 SEEN /hpf (0-5)
[2018-10-14 22:41] LABS: Color, Urine Yellow (Yellow); Glucose, Dipstick Normal (Normal); Ketone-Dipstick Negative (Negative); Leukocyte Esterase-Dipstick Negative /ul (Negative); Nitrite-Dipstick Negative (Negative); Occult Blood-Urine Negative /ul (Negative); Protein-Dipstick Negative (Negative); Specific Gravity, Urine 1.005 (1.002-1.030); Urine Bilirubin Dipstick Negative (Negative); Urine Clarity Sl. Cloudy (Clear); Urine Urobilinogen Normal (Normal)
[2018-10-14 22:45] LABS: Internal QC Validated? YES +Cl - CLEAR BKGD; Pregnancy, Urine Negative Negative
--- NOTE | 2018-10-14 22:45 | ED.DCSUM_ITS ---
History of Present Illness Chief Complaint: Female C/O Informant: Patient Onset: Days Context: Gradual Onset Timing: Continuous Current Severity: Severe Maximum Severity: Severe Narrative: Patient is a 28-year-old female with history of frequent yeast infections and BV presenting with worsening vaginal discharge and irritation. Patient states that her symptoms have been worsening for the past week or so. Patient states she is having intense itching and discomfort in her vaginal area. She denies any urinary symptoms such as dysuria or hematuria. Patient states she has not been sexually active for the past 3 weeks. Her last menstrual period was about 3 weeks ago. Patient also states that she is been tested multiple times for STDs and they been negative. She is followed up at urgent care as well as her [facility] [facility] with no resolution of her symptoms. Patient denies any associated fever or chills. She denies any other complaints at this time. Past Medical History - Allergies and Home Meds Allergies/Adverse Reactions: Allergies bacitracin [From Neosporin ([id number]-[id number]-[id number])] Adverse Reaction (Verified 10/14/18 19:57) Itching neomycin [From Neosporin ([id number])] Adverse Reaction (Verified 10/14/18 19:57) Itching nickel Adverse Reaction (Verified 10/14/18 19:57) Rash polymyxin B [From Neosporin ([id number])] Adverse Reaction (Verified 10/14/18 19:57) Itching Sulfa (Sulfonamide Antibiotics) Adverse Reaction (Verified 10/14/18 19:58) Itching Primary Care Physician: Elfego Wu DO [Primary Care Provider] - Smoking Status: Never smoker Review of Systems All systems negative except as indicated Genitourinary: Reports: - - Vaginal irritation Musculoskeletal: Reports: Back pain Physical Exam Vital Signs/Narrative: Vital Signs Temp Pulse Resp BP Pulse Ox 10/14/18 19:55 97.5 F L 98 18 124/82 H 97 Inital Vital Signs reviewed: Yes General: Well nourished, Well developed, No Acute Distress Head: Normocephalic, Atraumatic Eyes: Perrl, EOMI ENT: Moist mucous membranes, No rhinorrhea Neck: Supple, Nontender Cardiovascular: Regular rate, Regular rhythm, No murmurs Respiratory: No distress, CTA bilaterally, Chest nontender Abdomen: Soft, Nontender, Nondistended, Normal bowel sounds : - - Physiologic appearing vaginal discharge as well as white discharge consistent with yeast, no cervical motion tenderness, no adnexal tenderness, cervical erythema and irritation present, vulva appears normal Back: Nontender, Normal Inspection. Negative for: CVA tenderness Extremities: Nontender, No edema Skin: Normal color, No rash Neurological: Alert, Oriented x3, Cranial nerves II-XII grossly intact, Normal Strength, Normal Sensation Psychological: Normal affect, Normal Mood Diagnostic/Tx/Re-eval Laboratory Data 10/14/18 10/14/18 22:20 22:20 Urine Color Yellow Urine Clarity Sl. Cloudy Urine pH 7.0 Ur Specific [place] 1.005 Urine Protein Negative Urine Glucose (UA) Normal Urine Ketones Negative Urine Occult Blood Negative Urine Nitrite Negative Urine Bilirubin Negative Urine Urobilinogen Normal Ur Leukocyte Esterase Negative Urine RBC 0 SEEN Urine WBC 0 SEEN Ur Squamous Epith Cells 0 SEEN Urine Bacteria 0 SEEN Urine Mucus 0 SEEN Urine Test Negative - Medical Decision Making Patient is evaluated for worsening vaginal irritation. She seems to have recurrent episodes of yeast infections and other vaginal complaints. Urinalysis is normal and not consistent with UTI and I do not suspect pyelonephritis. I do not suspect pelvic inflammatory disease or tubo-ovarian abscess. Urine is negative. Patient be treated empirically for BV as well as candidiasis. She is encouraged to follow-up with her [employer] because this is a recurrent problem. She is counseled on signs symptoms requiring return to teri ency room. She is discharged home in stable condition. ED Disposition - Plan for ED Patient: Instructions: Vaginal Infection: Bacterial Vaginosis, Vaginal Infection: Yeast (Candidiasis) Prescriptions: Fluconazole 150 mg PO X1 #1 tab Prescription Printed metroNIDAZOLE 0.75% [Metrogel Vaginal] 5 applic VAGINAL QHS #7 tube Prescription Printed Referrals: Elfego Wu DO [Primary Care Provider] - Additional Instructions: Very important that you follow-up with your [facility] as this is a recurrent problem. You are given 1 dose of fluconazole in the ER which will treat the yeast infection. Take the second dose which was prescribed to you, in 1 week
[2018-10-14] MEDS: FLUCONAZOLE 150 MG TABLET PO (23:58)
[2018-10-14 23:59] VITALS: BP 117/79; PULSE 64; RESP 14; O2SAT 99
[2018-10-15 00:24] LABS: Chlamydia Trachomatis by PCR Negative (Negative); Neisserai gonorrhoeae by PCR Negative (Negative); Probe Check PASS; Sample Adequacy Control PASS; Specimen Processing Control PASS
== END 2018-10-14 23:59 | disposition home or self-care (01) ==
PROVIDERS: Emergency Provider Emergency Medicine; Family Provider Student in an Organized Health Care Education/Training Program; PCP Student in an Organized Health Care Education/Training Program
DX: N76.0 Acute vaginitis (principal); B37.3 Candidiasis of vulva and vagina
CPT/HCPCS: 81001; 81025; 87210; 87491; 87591; 99283

== ENCOUNTER 2019-09-13 13:52 | Outpatient (REF) | payer SELFPAY | END 2019-09-13 17:52 | disposition home or self-care (01) | LOC: EDREF 13:52 | PROVIDERS: PCP Student in an Organized Health Care Education/Training Program | DX: Z04.41 Encounter for examination and observation following alleged adult rape (principal) ==

== ENCOUNTER 2019-09-13 14:34 | Emergency (ER) | payer MEDICAID, SELFPAY ==
[2019-09-13 14:35] VITALS: BP 120/71; PULSE 100; RESP 16; TEMP 37.1; O2SAT 96; BMI 20.5
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
[2019-09-13] MEDS: Ceftriaxone 500 MG Vial 250 MG IM (14:57)
[2019-09-13] MEDS: [UNRECOGNIZED DRUG - OTHER] PO (14:57)
[2019-09-13] MEDS: metroNIDAZOLE 500 MG Tablet 2000 MG PO (14:57)
[2019-09-13] MEDS: Azithromycin 250 MG Tablet 1000 MG PO (15:01)
[2019-09-13] MEDS: Ondansetron ODT 4 MG Tablet 8 MG PO (15:14)
== END 2019-09-13 15:27 | disposition home or self-care (01) ==
PROVIDERS: Emergency Provider Emergency Medicine; PCP Student in an Organized Health Care Education/Training Program
DX: Z20.2 Contact with and (suspected) exposure to infections with a predominantly sexual mode of transmission (principal); R11.2 Nausea with vomiting, unspecified
CPT/HCPCS: 96372; 99283

== ENCOUNTER 2019-09-14 09:25 | Emergency (ER) | payer MEDICAID, SELFPAY ==
[2019-09-13 14:35] VITALS: BMI 20.5
[2019-09-14 09:26] VITALS: BP 124/90; PULSE 92; RESP 17; TEMP 36.4; O2SAT 98; BMI 20.5
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
[2019-09-14] MEDS: 0.9% Normal Saline 1,000 ML 1000 ML IV (09:44)
[2019-09-14] MEDS: Ondansetron 4 MG/2 ML Vial IV (09:44)
[2019-09-14] MEDS: Famotidine 200 MG/20 ML MDV 20 MG in 0.9% Normal Saline (Pres. free 8 ML 300 MG IV (09:46)
[2019-09-14 09:59] LABS: Internal QC Validated? YES +Cl - CLEAR BKGD; Pregnancy, Serum, hCG Quali. NEGATIVE Negative
[2019-09-14 10:02] LABS: Anion Gap 4 (5-15); BUN 14 mg/dL (7-18); BUN/Creat Ratio 16.1 RATIO (10-20); Calcium,Total 8.5 mg/dL (8.5-10.1); Chloride 104 mmol/L (98-107); Creatinine, Serum 0.87 mg/dL (0.55-1.02); EST Glomerular Filtration Rate 82 mL/min (>60); Est Glom Filt Rate - Afr Amer 99 mL/min (>60); Estimated Creatinine Clearance 76.14 ml/min; Glucose 117 mg/dL (74-106); Sodium Level 139 mmol/L (136-145)
[2019-09-14 10:42] VITALS: BP 122/90; PULSE 99; RESP 16; O2SAT 100
== END 2019-09-14 10:42 | disposition home or self-care (01) ==
PROVIDERS: Emergency Provider Emergency Medicine; PCP Student in an Organized Health Care Education/Training Program
DX: R11.2 Nausea with vomiting, unspecified (principal); E87.6 Hypokalemia; F17.200 Nicotine dependence, unspecified, uncomplicated
CPT/HCPCS: 80048; 84703; 96365; 96375; 99283; A4216; J2405; J3490

== ENCOUNTER 2019-10-05 20:18 | Emergency (ER) | payer MEDICAID, SELFPAY ==
[2019-10-05 20:18] VITALS: BP 106/88; PULSE 94; RESP 18; TEMP 36.3; O2SAT 95; BMI 20.1
--- NOTE | 2019-10-05 21:50 | EKG12_ITS ---
Test Reason : NAUSEA/VOMITING Blood Pressure : / mmHG Vent. Rate : 077 BPM Atrial Rate : 077 BPM P-R Int : 138 ms QRS Dur : 084 ms QT Int : 398 ms P-R-T Axes : 057 084 063 degrees QTc Int : 450 ms Normal sinus rhythm with sinus arrhythmia Normal ECG Confirmed by ELIZABETH MICHAEL, MICHELLE ([id number]), commissioning editor PAZ REAL ([id number]) on 10/07/2019 1:03:56 PM Referred By: Confirmed By:MICHELLE JOHNSON MD
[2019-10-05] MEDS: Ondansetron 4 MG/2 ML Vial IV (22:08)
[2019-10-05] MEDS: 0.9% Normal Saline 1,000 ML 1000 ML IV ×2 (22:08→22:51)
[2019-10-05 22:19] LABS: Absolute Lymphocyte Count 1.07 X10^3/uL (0.83-4.51); Absolute Neutrophil Count 11.6 X10^3/uL (2.0-7.7); Basophil# 0.02 X10^3/uL; Basophil% 0.2 % (0-1); Hematocrit 42.2 % (37-47); Hemoglobin 14.6 g/dL (12.0-15.0); Lymphocyte # 1.07 X10^3/ul (4.0); Lymphocyte % 8.1 % (19-41); Mean Corp Hgb Conc 34.6 g/dL (32-36); Mean Corpuscular Hgb 32.1 pg (27.0-32.0); Mean Corpuscular Volume 92.7 fL (81-99); Mean Platelet Vol. 9.9 fl (6.2-12.0); Monocyte# 0.57 X10^3/uL; Monocyte% 4.3 % (0-10); NRBC Flagged by Analyzer 0 % (0-5); Neutrophil # 11.58 X10^3/uL (2.7-7.7); Platelet Count 294 K/mm3 (150-450); RBC Distribution Width SD 41.5 fl (35.1-43.9); Red Blood Count 4.55 M/mm3 (4.2-5.4); White Blood Count 13.3 K/mm3 (4.4-11.0)
[2019-10-05 22:21] LABS: Anion Gap 7 (5-15); BUN 16 mg/dL (7-18); BUN/Creat Ratio 22.1 RATIO (10-20); Calcium,Total 8.9 mg/dL (8.5-10.1); Chloride 105 mmol/L (98-107); Creatinine, Serum 0.72 mg/dL (0.55-1.02); EST Glomerular Filtration Rate 102 mL/min (>60); Est Glom Filt Rate - Afr Amer 123 mL/min (>60); Estimated Creatinine Clearance 91.63 ml/min; Glucose 106 mg/dL (74-106); Potassium 3.3 mmol/L (3.5-5.1); Sodium Level 137 mmol/L (136-145)
[2019-10-05 22:51] LABS: Internal QC Validated? YES +Cl - CLEAR BKGD; Pregnancy, Serum, hCG Quali. NEGATIVE Negative
[2019-10-05 23:13] LABS: Bacteria 0 SEEN /hpf (None Seen); Mucous, Urine 0 SEEN /hpf (<or=2+); Squamous Epithelial Cells - UA 0 SEEN /hpf (5-10)
[2019-10-05 23:14] LABS: Color, Urine Yellow (Yellow); Glucose, Dipstick Normal (Normal); Leukocyte Esterase-Dipstick Negative /ul (Negative); Nitrite-Dipstick Negative (Negative); Occult Blood-Urine 10 /ul (Negative); Protein-Dipstick Negative (Negative); Specific Gravity, Urine 1.015 (1.002-1.030); Urine Bilirubin Dipstick Negative (Negative); Urine Clarity Clear (Clear); Urine Urobilinogen Normal (Normal); Urine pH 6.5 (5.0 - 8.0)
[2019-10-05 23:16] LABS: Ketone-Dipstick 150 mg/dl (Negative)
[2019-10-05 23:22] LABS: Red Blood Cells-Urine 0-5 SEEN /hpf (0-5); White Blood Cells 0-5 SEEN /hpf (0-5)
--- NOTE | 2019-10-05 23:39 | ED.DEP ---
ED Disposition - Plan for ED Patient: Instructions: ED Nausea Vomiting Adult Prescriptions: Ondansetron [Zofran Odt] 4 mg PO Q8H PRN PRN #10 tab PRN Reason: Nausea Prescription Printed Referrals: Elfego Wu DO [Primary Care Provider] -
--- NOTE | 2019-10-05 23:42 | ED.DCSUM_ITS ---
- ER Visit Summary Date of Service: 10/05/19 Chief Complaint: Vomiting and diarrhea History of Present Illness: The patient is a 29 F presenting with vomiting and diarrhea. Patient states this started today. She is unsure if this is related to her work environment. 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 She states throughout the day she felt overheated. She states she believes she was drinking enough water throughout the day. When she got home she started vomiting and started having diarrhea. She had dizziness and had a syncopal episode after one episode of vomiting. She denies blood in her emesis or stool. Denies fever. Denies abdominal pain. Denies possibility of . Denies other complaints. Physical Examination: Vitals are stable. Patient is afebrile. Alert no acute distress. HEENT exam dry mucous membranes Neck is supple. Lungs are clear and equal bilaterally. Heart is regular rate and rhythm. Abdomen is soft nontender nondistended. No guarding or rebound Extremities are unremarkable. Skin is warm and dry. No focal neurologic deficit. Remainder of exam is unremarkable. Emergency Department Course and Treatment: EKG is sinus rhythm rate of 77 with no acute ischemic changes. Patient was given IV fluids, Zofran. CBC, chemistries unremarkable other than white count 13.3, potassium 3.3. Urinalysis shows 0-5 white blood cells, positive ketones. hCG is negative. She is given potassium oral replacement. She is able to tolerate p.o. in the emergency room. She is feeling improved. She is advised to follow-up with her primary care physician. Advised return to ED if worsening complaints. Disposition: Discharge home Impression: Vomiting and diarrhea This note was generated with [employer] dictation software. It may contain incorrect words, spelling, and punctuation that were not noted in review of the chart prior to signing ED Disposition - Plan for ED Patient: Instructions: ED Nausea Vomiting Adult Prescriptions: Ondansetron [Zofran Odt] 4 mg PO Q8H PRN PRN #10 tab PRN Reason: Nausea Prescription Printed Referrals: Elfego Wu DO [Primary Care Provider] -
[2019-10-05 23:54] VITALS: BP 115/82; PULSE 98; RESP 16; O2SAT 100
== END 2019-10-06 00:02 | disposition home or self-care (01) ==
PROVIDERS: Emergency Provider Emergency Medicine; PCP Student in an Organized Health Care Education/Training Program
DX: R19.7 Diarrhea, unspecified (principal); R11.2 Nausea with vomiting, unspecified
CPT/HCPCS: 80048; 81001; 84703; 85025; 93005; 99285; J7030; A4216; J2405

== ENCOUNTER 2019-10-29 18:39 | Emergency (ER) | payer MEDICAID, SELFPAY ==
[2019-10-29 18:40] VITALS: BP 126/91; PULSE 98; RESP 18; TEMP 36.3; O2SAT 100; BMI 18.5
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
[2019-10-29] MEDS: Morphine 2 MG/ML Syringe IV (19:03)
[2019-10-29] MEDS: Ondansetron 4 MG/2 ML Vial IV (19:03)
[2019-10-29 19:11] LABS: Absolute Lymphocyte Count 2.08 X10^3/uL (0.83-4.51); Basophil# 0.02 X10^3/uL; Basophil% 0.3 % (0-1); Eosinophil# 0.05 X10^3/uL; Eosinophils% 0.6 % (0-5); Hematocrit 44.5 % (37-47); Hemoglobin 15.2 g/dL (12.0-15.0); Lymphocyte # 2.08 X10^3/ul (4.0); Lymphocyte % 26.2 % (19-41); Mean Corp Hgb Conc 34.2 g/dL (32-36); Mean Corpuscular Hgb 32.1 pg (27.0-32.0); Mean Corpuscular Volume 94.1 fL (81-99); Mean Platelet Vol. 9.4 fl (6.2-12.0); Monocyte# 0.78 X10^3/uL; Monocyte% 9.8 % (0-10); NRBC Flagged by Analyzer 0 % (0-5); Neutrophil % 62.8 % (47-70); Platelet Count 282 K/mm3 (150-450); RBC Distribution Width CV 12.3 % (11.6-14.6); Red Blood Count 4.73 M/mm3 (4.2-5.4)
[2019-10-29 19:19] LABS: International Normalized Ratio 1.1; Prothrombin Time (Protime)PT. 13.2 SECONDS (11.7-14.9)
[2019-10-29 19:20] LABS: Partial Thromboplast Time 25.5 Seconds (24.1-36.2)
[2019-10-29 19:36] LABS: Anion Gap 7 (5-15); BUN 11 mg/dL (7-18); BUN/Creat Ratio 13.1 RATIO (10-20); Calcium,Total 8.8 mg/dL (8.5-10.1); Chloride 101 mmol/L (98-107); Creatinine, Serum 0.84 mg/dL (0.55-1.02); EST Glomerular Filtration Rate 85 mL/min (>60); Est Glom Filt Rate - Afr Amer 103 mL/min (>60); Estimated Creatinine Clearance 74.61 ml/min; Glucose 131 mg/dL (74-106); Potassium 3.1 mmol/L (3.5-5.1); Sodium Level 137 mmol/L (136-145)
[2019-10-29 19:40] LABS: hCG Titer Quant., Serum < 1 mIU/mL (1-3)
[2019-10-29] MEDS: Metoclopramide 10 MG/2 ML Vial 5 MG IV (20:23)
[2019-10-29] MEDS: Ketorolac 15 MG/ML Vial IV (20:23)
[2019-10-29] MEDS: DiphenhydrAMINE 50 MG/ML Syringe 25 MG IV (20:24)
[2019-10-29 20:49] VITALS: BP 110/86; PULSE 78; RESP 16; O2SAT 98
== END 2019-10-29 21:10 | disposition home or self-care (01) ==
PROVIDERS: Emergency Provider Emergency Medicine; PCP Student in an Organized Health Care Education/Training Program
DX: G43.511 Persistent migraine aura without cerebral infarction, intractable, with status migrainosus (principal)
CPT/HCPCS: 70496; 80048; 84702; 85025; 85610; 85730; 96374; 96375; 99283; Q9967; A4216; J2405

== ENCOUNTER 2020-01-03 09:21 | Emergency (ER) | payer MEDICAID, SELFPAY ==
[2020-01-03 09:23] VITALS: BP 139/77; PULSE 89; RESP 16; TEMP 36.2; O2SAT 100; BMI 19.1
--- NOTE | 2020-01-03 09:47 | ED.DCSUM_ITS ---
History of Present Illness Chief Complaint: Headache Informant: Patient Onset: Today Current Severity: Moderate Maximum Severity: Moderate Narrative: Patient presents secondary to headache with mild nausea. She reports having frequent headaches over the past month. Her PCP has been checking blood work and trying some medications to prevent her headaches. She was seen here in October for a headache and had a normal CTA of the head at that time. - Past Medical History (1) Migraine Status: Chronic Past Medical History - Allergies and Home Meds Allergies/Adverse Reactions: Allergies bacitracin [From Neosporin ([id number])] Adverse Reaction (Verified 01/03/20 09:22) Itching neomycin [From Neosporin ([id number]-[id number])] Adverse Reaction (Verified 01/03/20 09:22) Itching nickel Adverse Reaction (Verified 01/03/20 09:22) Rash polymyxin B [From Neosporin ([id number])] Adverse Reaction (Verified 01/03/20 09:22) Itching Sulfa (Sulfonamide Antibiotics) Adverse Reaction (Verified 01/03/20 09:22) Itching Primary Care Physician: Elfego Wu DO [Primary Care Provider] - Prior records reviewed: Yes Surgical History: no surgical history Smoking Status: Never smoker Review of Systems General: Denies: Chills, Fever Eyes: Denies: Visual changes - bilaterally ENT: Denies: Bilateral ear pain Cardiovascular: Denies: Chest pain Respiratory: Denies: Dyspnea, Cough Gastrointestinal: Reports: Nausea. Denies: Abdominal pain, Vomiting Musculoskeletal: Denies: Swelling, Extremity Pain Neurological: Reports: Headache. Denies: Weakness, Parasthesia Hematologic: Denies: Easy bruising, Easy bleeding Allergy: Denies: Uticaria Physical Exam Vital Signs/Narrative: Vital Signs Temp Pulse Resp BP Pulse Ox 01/03/20 09:23 97.1 F L 89 16 139/77 H 100 Inital Vital Signs reviewed: Yes General: Well nourished, Well developed Head: Normocephalic ENT: Moist mucous membranes Neck: Supple Cardiovascular: Regular rate, Regular rhythm Respiratory: No distress, CTA bilaterally Abdomen: Soft, Nontender Skin: Normal color Neurological: Alert, Oriented x3, Normal Strength, Normal Sensation Psychological: Normal affect Diagnostic/Tx/Re-eval - Medical Decision Making Patient was given IV fluids along with Toradol, Reglan, and Benadryl. On repeat evaluation, patient does feel significantly improved. She will be given prescri ptions for the above-mentioned medications that she can take for breakthrough pain when her other medication is not helping her. She will follow-up with her PCP as scheduled. ED Disposition - Plan for ED Patient: Disposition: Home or Assisted Living Diagnosis: Migraine Instructions: ED, Migraine (Classical) Prescriptions: DiphenhydrAMINE [Benadryl] 50 mg PO BID PRN PRN #20 cap PRN Reason: Migraine Symptoms Transmission Status: Pending to [facility] [address] Metoclopramide [Reglan] 10 mg PO BID PRN PRN #20 tab PRN Reason: Migraine Symptoms Transmission Status: Pending to [facility] Ketorolac [Toradol] 10 mg PO BID PRN PRN #10 tab PRN Reason: Migraine Symptoms Transmission Status: Pending to [facility] [address] Referrals: Elfego Wu DO [Primary Care Provider] - 1 Week
[2020-01-03] MEDS: DiphenhydrAMINE 50 MG/ML Syringe 25 MG IV (10:04)
[2020-01-03] MEDS: 0.9% Normal Saline 1,000 ML 999 ML IV (10:05)
[2020-01-03] MEDS: Ketorolac 15 MG/ML Vial IV (10:06)
[2020-01-03] MEDS: Metoclopramide 10 MG/2 ML Vial 5 MG IV (10:07)
[2020-01-03 12:12] VITALS: BP 105/74; PULSE 81; RESP 16; O2SAT 99
--- NOTE | 2020-01-03 12:13 | ED.RN ---
THIS NURSE REVIEWED D/C INSTRUCTIONS WITH PT. PT VERBALIZED UNDERSTANDING OF INSTRUCTIONS. IV D/C. IV CATHETER INTACT. PT TOLERATED WELL. PT DENIES FURTHER NEEDS OR QUESTIONS AT THIS TIME
== END 2020-01-03 12:14 | disposition home or self-care (01) ==
PROVIDERS: Emergency Provider Emergency Medicine; PCP Student in an Organized Health Care Education/Training Program
DX: G43.909 Migraine, unspecified, not intractable, without status migrainosus (principal)
CPT/HCPCS: 96361; 96374; 96375; 99283

== ENCOUNTER 2020-01-22 18:08 | Emergency (ER) | payer MEDICAID, SELFPAY ==
[2020-01-22 18:09] VITALS: BP 125/90; PULSE 106; RESP 16; TEMP 35.9; O2SAT 97; BMI 19.3
--- NOTE | 2020-01-22 18:35 | ED.VIS.GEN ---
History of Present Illness Chief Complaint: Nausea/Vomiting Informant: Patient Onset: Days Context: Gradual Onset Narrative: Patient presents secondary to vomiting for the past 2 days and diarrhea today. She is complaining of bilateral leg pain over the past 3 days. She states it does not feel like cramps but does shoot up into her back. She had a single day with fever. She denies cough and congestion. She states she was tested for Covid yesterday at [facility] but is not sure if this was a PCR or rapid antigen test. She got results this morning that reported it was negative. She is now questioning if she may have influenza. - Past Medical History (1) Migraine Status: Chronic Past Medical History - Allergies and Home Meds Allergies/Adverse Reactions: Allergies bacitracin [From Neosporin ([id number])] Adverse Reaction (Verified 01/22/20 18:11) Itching neomycin [From Neosporin ([id number]-cwd-[id number])] Adverse Reaction (Verified 01/22/20 18:11) Itching nickel Adverse Reaction (Verified 01/22/20 18:11) Rash polymyxin B [From Neosporin ([id number]-qrv-[id number])] Adverse Reaction (Verified 01/22/20 18:11) Itching Sulfa (Sulfonamide Antibiotics) Adverse Reaction (Verified 01/22/20 18:11) Itching Primary Care Physician: Elfego Wu DO [Primary Care Provider] - Prior records reviewed: Yes Surgical History: no surgical history Smoking Status: Never smoker Review of Systems General: Reports: Fever - Single fever Eyes: Denies: Visual changes - bilaterally ENT: Denies: Bilateral ear pain Cardiovascular: Denies: Chest pain Respiratory: Denies: Dyspnea, Cough Gastrointestinal: Reports: Nausea, Vomiting, Diarrhea Genitourinary: Denies: Dysuria, Frequency Musculoskeletal: Reports: Extremity Pain. Denies: Swelling Skin: Denies: Rash Hematologic: Denies: Easy bruising, Easy bleeding Allergy: Denies: Uticaria Physical Exam Vital Signs/Narrative: Vital Signs Temp Pulse Resp BP Pulse Ox 01/22/20 18:09 96.6 F L 106 H 16 125/90 H 97 Inital Vital Signs reviewed: Yes General: Well nourished, Well developed Head: Normocephalic ENT: Moist mucous membranes Neck: Supple Cardiovascular: Regular rate, Regular rhythm Respiratory: No distress, CTA bilaterally Abdomen: Soft, Nontender Extremities: Tenderness. Negative for: Edema Skin: Normal color Neurological: Alert, Oriented x3 Psychological: Normal affect Diagnostic/Tx/Re-eval Impressions Venous Duplex 01/22/20 18:48 IMPRESSION: Normal venous Doppler ultrasound of the bilateral lower extremities. Electronically Signed: Mkia Chacon MD at 20:24 EST , Service support , 01/22/20 18:56 Mucosa - Nose SARS-CoV-2 Antigen (Rapid) - Final 01/22/20 18:56 Mucosa - Nose Influenza Types A,B Direct FA (LIZETTE) - Final Laboratory Results 01/22/20 01/22/20 01/22/20 18:56 18:56 18:56 WBC 3.2 L RBC 4.58 Hgb 14.7 Hct 42.6 MCV 93.0 MCH 32.1 H MCHC 34.5 RDW Std Deviation 43.0 RDW Coeff of Cuau[place]em[place] 12.6 Plt Count 206 MPV 10.1 Immature Gran % (Auto) 0.300 Neut % (Auto) 27.0 L Lymph % (Auto) 49.7 H [place] % (Auto) 22.4 H Eos % (Auto) 0.3 Baso % (Auto) 0.3 Absolute Neuts (auto) 0.9 L Absolute Lymphs (auto) 1.60 Nucleated RBC % 0 Differential Comment COMMENT Sodium 140 Potassium 3.4 L Chloride 106 Carbon Dioxide 27.0 Anion Gap 7 BUN 18 Creatinine 0.64 Estim Creat Clear Calc 99.17 Est GFR (MDRD) Af Amer 140 Est GFR (MDRD) Non-Af 116 BUN/Creatinine Ratio 28.0 H Glucose 75 Calcium 8.5 Serum , Qual NEGATIVE Urine Color Urine Clarity Urine pH Ur Specific [place] Urine Protein Urine Glucose (UA) Urine Ketones Urine Occult Blood Urine Nitrite Urine Bilirubin Urine Urobilinogen Ur Leukocyte Esterase Urine RBC Urine WBC Ur Squamous Epith Cells Urine Bacteria Urine Mucus 01/22/20 20:50 WBC RBC Hgb Hct MCV MCH MCHC RDW Std Deviation RDW Coeff of [place] Plt Count MPV Immature Gran % (Auto) Neut % (Auto) Lymph % (Auto) [place] % (Auto) Eos % (Auto) Baso % (Auto) Absolute Neuts (auto) Absolute Lymphs (auto) Nucleated RBC % Differential Comment Sodium Potassium Chloride Carbon Dioxide Anion Gap BUN Creatinine Estim Creat Clear Calc Est GFR (MDRD) Af Amer Est GFR (MDRD) Non-Af BUN/Creatinine Ratio Glucose Calcium Serum , Qual Urine Color Yellow Urine Clarity Clear Urine pH 5.0 Ur Specific [place] 1.025 Urine Protein 15 H Urine Glucose (UA) Normal Urine Ketones 150 H Urine Occult Blood 10 H Urine Nitrite Negative Urine Bilirubin Negative Urine Urobilinogen Normal Ur Leukocyte Esterase 25 H Urine RBC 0 SEEN Urine WBC 0 SEEN Ur Squamous Epith Cells 0-5 SEEN Urine Bacteria RARE Urine Mucus 1+ - Medical Decision Making Patient was given IV fluids, Toradol, and Zofran. On repeat evaluation she does feel improved. Blood work is discussed with her. Her Covid and flu test are negative here tonight. She does have leukopenia consistent with a viral syndrome. Potassium is slightly low. Patient's nausea is improved with Zofran and she will be given prescription for Zofran as well as some potassium replacement at home. Venous ultrasound of the legs reveals no evidence of DVT. ED Disposition - Plan for ED Patient: Disposition: Home or Assisted Living Diagnosis: Viral syndrome, Vomiting Instructions: ED Viral Syndrome (Adult) Prescriptions: Potassium Chloride [K-Dur] 20 meq PO BID #6 tab Transmission Status: Pending to [facility] Ondansetron [Zofran Odt] 4 mg PO Q8H PRN PRN #10 tab PRN Reason: Nausea Transmission Status: Pending to [facility]UE[facility] Referrals: Elfego Wu DO [Primary Care Provider] - 1 Week if not improving
--- NOTE | 2020-01-22 18:48 | US_ITS ---
STUDY: VENOUS DOPPLER ULTRASOUND - BILATERAL LOWER EXTREMITIES REASON FOR EXAM: Female, 29 years old. PATIENT C/O NAUSEA AND VOMITING WITH LEG PAIN THAT SHOOTS UP INTO HER BACK X 3 DAYS. TECHNIQUE: Ultrasound evaluation of the deep vein system to include manriquez-scale imaging and compression was performed. Manriquez-scale imaging and Doppler sonographic evaluation, including duplex spectral analysis and qualitative color flow sonography, was performed. COMPARISON: None. FINDINGS: RIGHT LEG Common Femoral Vein: Normal compression, spontaneity and augmentation. Normal color Doppler. Common Femoral Vein/Greater Saphenous Junction: Normal compression, spontaneity and augmentation. Normal color Doppler. Deep Femoral Vein: Normal compression, spontaneity and augmentation. Normal color Doppler. Femoral Proximal: Normal compression, spontaneity and augmentation. Normal color Doppler. Femoral Middle: Normal compression, spontaneity and augmentation. Normal color Doppler. Femoral Distal: Normal compression, spontaneity and augmentation. Normal color Doppler. Popliteal Vein: Normal compression, spontaneity and augmentation. Normal color Doppler. Posterior Tibial Vein: Normal compression, spontaneity and augmentation. Normal color Doppler. Peroneal Vein: Normal compression, spontaneity and augmentation. Normal color Doppler. LEFT LEG Common Femoral Vein: Normal compression, spontaneity and augmentation. Normal color Doppler. Common Femoral Vein/Greater Saphenous Junction: Normal compression, spontaneity and augmentation. Normal color Doppler. Deep Femoral Vein: Normal compression, spontaneity and augmentation. Normal color Doppler. Femoral Proximal: Normal compression, spontaneity and augmentation. Normal color Doppler. Femoral Middle: Normal compression, spontaneity and augmentation. Normal color Doppler. Femoral Distal: Normal compression, spontaneity and augmentation. Normal color Doppler. Popliteal Vein: Normal compression, spontaneity and augmentation. Normal color Doppler. Posterior Tibial Vein: Normal compression, spontaneity and augmentation. Normal color Doppler. Peroneal Vein: Normal compression, spontaneity and augmentation. Normal color Doppler. US/Venous Duplex Imag/Jai Extrem IMPRESSION: Normal venous Doppler ultrasound of the bilateral lower extremities. Electronically Signed: Mika Chacon MD at 20:24 EST , Service support ,
[2020-01-22] MEDS: 0.9% Normal Saline 1,000 ML 1000 ML IV (18:52)
[2020-01-22] MEDS: Ketorolac 30 MG/ML Syringe IV (18:52)
[2020-01-22] MEDS: Ondansetron 4 MG/2 ML Vial IV (18:53)
[2020-01-22 19:22] LABS: Anion Gap 7 (5-15); BUN 18 mg/dL (7-18); Calcium,Total 8.5 mg/dL (8.5-10.1); Chloride 106 mmol/L (98-107); Creatinine, Serum 0.64 mg/dL (0.55-1.02); EST Glomerular Filtration Rate 116 mL/min (>60); Est Glom Filt Rate - Afr Amer 140 mL/min (>60); Estimated Creatinine Clearance 99.17 ml/min; Glucose 75 mg/dL (74-106); Internal QC Validated? YES +Cl - CLEAR BKGD; Potassium 3.4 mmol/L (3.5-5.1); Pregnancy, Serum, hCG Quali. NEGATIVE Negative; Sodium Level 140 mmol/L (136-145)
[2020-01-22 19:27] LABS: Absolute Neutrophil Count 0.9 X10^3/uL (2.0-7.7); Basophil# 0.01 X10^3/uL; Basophil% 0.3 % (0-1); Eosinophil# 0.01 X10^3/uL; Eosinophils% 0.3 % (0-5); Hematocrit 42.6 % (37-47); Hemoglobin 14.7 g/dL (12.0-15.0); Lymphocyte % 49.7 % (19-41); Mean Corp Hgb Conc 34.5 g/dL (32-36); Mean Corpuscular Hgb 32.1 pg (27.0-32.0); Mean Platelet Vol. 10.1 fl (6.2-12.0); Monocyte# 0.72 X10^3/uL; Monocyte% 22.4 % (0-10); NRBC Flagged by Analyzer 0 % (0-5); Neutrophil # 0.87 X10^3/uL (2.7-7.7); POSITIVE DIFFERENTIAL YES; Platelet Count 206 K/mm3 (150-450); RBC Distribution Width CV 12.6 % (11.6-14.6); Red Blood Count 4.58 M/mm3 (4.2-5.4); White Blood Count 3.2 K/mm3 (4.4-11.0)
[2020-01-22 19:33] LABS: Differential Indicated SCAN CRITERIA MET
[2020-01-22 20:58] LABS: Red Blood Cells-Urine 0 SEEN /hpf (0-5); White Blood Cells 0 SEEN /hpf (0-5)
[2020-01-22 21:01] LABS: Color, Urine Yellow (Yellow); Glucose, Dipstick Normal (Normal); Leukocyte Esterase-Dipstick 25 /ul (Negative); Nitrite-Dipstick Negative (Negative); Occult Blood-Urine 10 /ul (Negative); Protein-Dipstick 15 mg/dl (Negative); Specific Gravity, Urine 1.025 (1.002-1.030); Urine Bilirubin Dipstick Negative (Negative); Urine Clarity Clear (Clear); Urine Urobilinogen Normal (Normal)
[2020-01-22 21:20] LABS: Bacteria RARE /hpf (None Seen); Ketone-Dipstick 150 mg/dl (Negative); Mucous, Urine 1+ /hpf (<or=2+); Squamous Epithelial Cells - UA 0-5 SEEN /hpf (5-10)
[2020-01-22 22:02] VITALS: PULSE 88; RESP 14; O2SAT 99
== END 2020-01-22 22:03 | disposition home or self-care (01) ==
PROVIDERS: Emergency Provider Emergency Medicine; PCP Student in an Organized Health Care Education/Training Program
DX: B34.9 Viral infection, unspecified (principal); R11.2 Nausea with vomiting, unspecified; R19.7 Diarrhea, unspecified; M79.604 Pain in right leg; M79.605 Pain in left leg
CPT/HCPCS: 80048; 81001; 84703; 85025; 87426; 87804; 93970; 96361; 96374; 96375; 99283; J7030; A4216; J2405

== ENCOUNTER 2021-04-04 09:36 | Outpatient (CLI) | payer MEDICAID, SELFPAY ==
[2021-04-04 11:51] LABS: ALB/GLOB Ratio 0.8 RATIO (0.9-2.4); AST(SGOT) 20 U/L (15-37); Alanine Aminotransfer ALT/SGPT 20 U/L (13-56); Albumin, Serum 3.5 g/dL (3.2-5.0); Alkaline Phosphatase 101 U/L (45-117); Anion Gap 12 (5-15); BUN 16 mg/dL (7-18); BUN/Creat Ratio 23.2 RATIO (10-20); Calcium,Total 8.8 mg/dL (8.5-10.1); Chloride 99 mmol/L (98-107); Creatinine, Serum 0.69 mg/dL (0.55-1.02); EST Glomerular Filtration Rate 106 mL/min (>60); Est Glom Filt Rate - Afr Amer 129 mL/min (>60); Globulin 4.6 g/dL (2.2-4.2); Glucose 63 mg/dL (74-106); LDH 141 U/L (84-246); Potassium 3.4 mmol/L (3.5-5.1); Protein, Total 8.1 g/dL (6.4-8.2); Sodium Level 135 mmol/L (136-145)
[2021-04-04 12:03] LABS: Erythrocyte Sedimentation Rate 12 mm/hr (0-30)
[2021-04-04 12:05] LABS: Absolute Lymphocyte Count 1.84 X10^3/uL (0.83-4.51); Basophil# 0.01 X10^3/uL; Basophil% 0.3 % (0-1); Eosinophil# 0.01 X10^3/uL; Eosinophils% 0.3 % (0-5); Hematocrit 42.8 % (37-47); Hemoglobin 15.3 g/dL (12.0-15.0); Lymphocyte # 1.84 X10^3/ul (0.83-4.51); Mean Corp Hgb Conc 35.7 g/dL (32-36); Mean Corpuscular Hgb 32.8 pg (27.0-32.0); Mean Corpuscular Volume 91.8 fL (81-99); Mean Platelet Vol. 9.9 fl (6.2-12.0); Monocyte# 0.29 X10^3/uL; Monocyte% 9.3 % (0-10); NRBC Flagged by Analyzer 0 % (0-5); Neutrophil # 0.96 X10^3/uL (2.7-7.7); Neutrophil % 30.8 % (47-70); POSITIVE DIFFERENTIAL YES; POSITIVE MORPHOLOGY YES; Platelet Count 295 K/mm3 (150-450); RBC Distribution Width CV 12.4 % (11.6-14.6); RBC Distribution Width SD 41.7 fl (35.1-43.9); Red Blood Count 4.66 M/mm3 (4.2-5.4); White Blood Count 3.1 K/mm3 (4.4-11.0)
[2021-04-04 12:06] LABS: Differential Indicated SCAN CRITERIA MET
[2021-04-04 12:10] LABS: Syphilis Antibodies Non-reactive
[2021-04-04 14:35] LABS: CPK Total, Creatine Kinase 30 U/L (26-192)
[2021-04-05 15:14] LABS: Pathologist Review Reviewed
[2021-04-05 16:11] LABS: Anti-Centromere B Ab <0.2 AI (0.0-0.9); Anti-Chromatin 0.2 AI (0.0-0.9); Anti-Jo <0.2 AI (0.0-0.9); Anti-Scleroderma-70 AB <0.2 AI (0.0-0.9); Anti-ribosomal P Antibodies <0.2 AI (0.0-0.9); RNP Ab 0.4 AI (0.0-0.9); SJOGREN'S Anti-SS-A test < 0.2 AI (0.0-0.9); SJOGREN'S Anti-SS-B test < 0.2 AI (0.0-0.9); Smith Ab <0.2 AI (0.0-0.9); Smith/RNP Ab <0.2 AI (0.0-0.9)
[2021-04-05 18:13] LABS: Anti-dsDNA Ab <1 IU/mL (0-9)
[2021-04-08 16:08] LABS: Angiotensin Convert Enzyme 44 U/L (14-82); Cytoplasmic Ab (C-ANCA) <1:20 titer (Neg:<1:20); Endomysial Antibody IgA Negative (Negative); HEPATITIS B SURFACE AG Negative (Negative); Hepatitis A IgM Antibody Negative (Negative); Hepatitis B Core AB IgM Negative (Negative); Immunoglobulin A 226 mg/dL (87-352); Immunoglobulin E 39 IU/mL (6-495); Immunoglobulin G 1283 mg/dL (586-1602)
[2021-04-08 18:18] LABS: EBV Acute VCA IgM < 36.0 U/mL (0.0-35.9); EBV Early Antigen IgG <9.0 U/mL (0.0-8.9); EBV Nuclear Antigen IgG > 600.0 U/mL (0.0-17.9); EBV-VCA IgG > 600.0 U/mL (0.0-17.9); Hep C Antibodies <0.1 s/co ratio (0.0-0.9); Immunoglobulin M 86 mg/dL (26-217); Perinuclear Ab (P-ANCA) <1:20 titer (Neg:<1:20); t-Transglutaminase IgA <2 U/mL (0-3)
== END 2021-04-04 23:59 | disposition home or self-care (01) ==
LOC: LAB 09:37
PROVIDERS: PCP Student in an Organized Health Care Education/Training Program; Referring Provider Internal Medicine Gastroenterology; Visit Provider Internal Medicine Gastroenterology
DX: R10.9 Unspecified abdominal pain (principal)
CPT/HCPCS: 36415; 80053; 80074; 82164; 82550; 82784; 82785; 83516; 83615; 85025; 85652; 86038; 86140; 86225; 86235; 86255; 86256; 86663; 86664; 86665; 86780

== ENCOUNTER 2021-05-23 10:47 | Day surgery (SDC) | payer MEDICAID, SELFPAY ==
[2021-05-23 11:13] LABS: Internal QC Validated? YES +Cl - CLEAR BKGD; Pregnancy, Urine Negative Negative
[2021-05-23 11:16] VITALS: BP 122/87; PULSE 104; RESP 16; TEMP 36.8; O2SAT 100; BMI 17.3
--- NOTE | 2021-05-23 11:21 | SUR.PREOP ---
Invisalign liners in upper and lower teeth
[2021-05-23] MEDS: Lactated Ringers 1,000 ML 15 ML IV (11:22)
--- NOTE | 2021-05-23 12:00 | EGD_PTH ---
PATIENT: BIJU HOWARD LOC: EN U#:[id number] AGE/SX: 30/F ROOM: RE05/23/[address]: Dr. Wilfredo Oliveira DO : 1990 BED: DIS: 05/23/2021 SPEC #: [id number] RECD: 05/23/21 13:31 STATUS: NITIN REMyrna #: [id number] [place]: 05/23/21 12:[address]: Wilfredo Oliveira DEPT: SURGICAL PATHOLOGY RECD BY: Heaven Garcia ENTERED: 05/23/21 13:50 SP TYPE: EGD BIOPSY OT DR: Dr. Elfego Wu DO Tissues: A - Duodenum, NOS B - Gastric mucous membrane C - Esophagus, NOS D - Ileum, NOS E - COLON BIOPSY F - Rectum, NOS Procedures: Special Stain Group II Surgery Specimen Level IV Alcian Blue/PAS (control) HEADER OPERATION: [place] [place] DIAGNOSIS: Colitis TISSUE SUBMITTED: A ? Duodenum biopsy, B ? Gastric antrum biopsy, C ? Distal esophagus biopsy, D ? Terminal ileum biopsy, E ? Random colon biopsy, F ? Rectum biopsy MICROSCOPIC DIAGNOSIS A. Duodenum, biopsy: Fragments of duodenal mucosa with mild Madison gland hyperplasia. B. Gastric antrum, biopsy: Mild gastritis. See microscopic description and comment. C. 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 Chronic inflammation. See comment. D. Terminal ileum, biopsy: Fragments of small intestinal mucosa, no pathologic diagnosis. E. Colon, random biopsy: Fragments of colonic mucosa, no pathologic diagnosis. F. Rectum, biopsy: Fragments of colonic mucosa, no pathologic diagnosis. SJ:karis 05/24/2021 COMMENT B. The results of immunohistochemistry for Helicobacter pylori will be reported separately ([id number]). C. Alcian blue/PAS stain with matched control is used in the evaluation of the specimen. Immunohistochemistry ([id number]) for P53 and Ki-67 will be performed and results will be reported separately. MICROSCOPIC DESCRIPTION Slides are reviewed. B. The specimen shows fragments of gastric mucosa with chronic inflammatory cell infiltrates in the lamina propria consisting of lymphocytes and plasma cells, consistent with mild chronic gastritis. GROSS DESCRIPTION A - Received in fixative is one container labeled with the patient's name and designated duodenum biopsy. The specimen consists of multiple irregular fragments of light barnes soft tissue that in aggregate measure 1 x 0.3 x 0.1 cm. The specimen is totally submitted in one cassette. B - Received in fixative is one container labeled with the patient's name and designated antrum biopsy. The specimen consists of multiple irregular fragments of light barnes soft tissue that in aggregate measure 1 x 0.3 x 0.1 cm. The specimen is totally submitted in one cassette. C - Received in fixative is one container labeled with the patient's name and designated distal esophagus. The specimen consists of two irregular fragments of light barnes soft tissue that in aggregate measure 0.6 x 0.6 x 0.1 cm. The specimen is totally submitted in one cassette. D - Received in fixative is one container labeled with the patient's name and designated terminal ileum biopsy. The specimen consists of multiple irregular fragments of light barnes soft tissue that in aggregate measure 0.7 x 0.3 x 0.1 cm. The specimen is totally submitted in one cassette. E - Received in fixative is one container labeled with the patient's name and designated random colon biopsy. The specimen consists of multiple irregular fragments of light barnes soft tissue that in aggregate measure 2 x 1 x 0.1 cm. The specimen is totally submitted in one cassette. F - Received in fixative is one container labeled with the patient's name and designated rectum biopsy. The specimen consists of two irregular fragments of light barnes soft tissue that in aggregate measure 0.5 x 0.3 x 0.1 cm. The specimen is totally submitted in one cassette. / AM:karis 05/23/2021 TC:3 CPT: 32612 x6, 69683
--- NOTE | 2021-05-23 12:00 | IMM_PTH ---
PATIENT: BIJU HOWARD LOC: EN U#:[id number] AGE/SX: 30/F ROOM: RE05/23/[address]: Dr. Wilfredo Oliveira DO : 1990 BED: DIS: 05/23/2021 SPEC #: [id number] RECD: 05/23/21 14:23 STATUS: NITIN REQ #: [id number] [place]: 05/23/21 12:[address]: Wilfredo Oliveira DEPT: IMMUNOHISTOCHEMISTRY RECD BY: Radha Howell ENTERED: 05/23/21 14:24 SP TYPE: IMMUNO OTHR DR: Dr. Elfego Wu DO Tissues: B - Stomach, NOS C - Esophagus, NOS Procedures: H Pylori (initial) P53 (initial) KI-67 (add) PHYSICIAN & INSTITUTION [place] [id number] SPECIMEN INFORMATION: Tissue Source: B ? Gastric antrum, C ? Distal esophagus Clinical Info: Colitis Specimen Number: [id number] B & C CPT code: 53724 x2, 38607 METHODOLOGY: Deparaffinized sections of prefer/formalin-fixed tissue or PAP/DQ stained slides are incubated with monoclonal/polyclonal antibodies/oligonucleotide probes. Localization is made via biotin free immunoperoxidase method. Appropriate controls are performed and reacted as expected. Results on target cell population are indicated in the following table: RESULTS: ANTIBODY / CLONE RESULT Block B H Pylori (polyclonal) negative Block C P53 (DO-7) negative Ki-67 (30-9) positive, very low These tests were developed and their performance characteristics determined by [facility]. They may not have been cleared or approved by the U.S. Food and Drug Administration. The FDA has determined that such clearance or approval is not necessary. The above immunohistochemical/dualISH markers are ordered and reviewed by the Pathologist. INTERPRETATION: B. Gastric antrum, biopsy: Negative for Helicobacter pylori organisms. C. Distal esophagus, biopsy: Negative for dysplasia. SJ:karis 05/25/2021
--- NOTE | 2021-05-23 12:05 | PCM.HP.BLA ---
History and Physical Date of Admission: 05/23/21 30 F who presents to the office today for nausea and weight loss. She reports nausea on a daily basis to the point where she is not eating. She has never had any endoscopic evaluation. Typically before 3 months ago she said everything was fine. She does have a history of migraine disorders but cannot member the last time she had a migraine. That has been relatively stable. The only change that she has had over the last 3 months is that she was started on spironolactone for acne about 3 weeks ago. Other than that she has had no changes in medications. She does not smoke cigarettes she does not use any street drugs. She did contract S TD in November 2019 and was treated appropriately. That was a chlamydia infection. she has no gynecologic issues at this time. Her symptoms include generalized pain, abdominal pain, nausea with historical emesis. When she is nauseous she does not eat. Reports weight loss: 115lbs fall of 2020, current weight 99lbs. Onset of symptoms end of with generalized body pain starting first. She has been having difficulty with joint pain for several years, lupus workup negative, rheumatology workup performed without answer. She presented to [facility] ED twice in with nausea, abdominal pain, back pain and nausea with a resulting diagnosis of nausea secondary to colitis. She saw her PCP who referred to this office. Tylenol minimally effective for pain, prednisone 40mg without changes. CT abd/pel 03.03.21 with contrast found diffuse mild wall thickening and surrounding inflammatory change throughout the colon and rectum. Remaining structures without noted abnormality. ROS Const Constitutional: No anorexia, fatigue, fever(s), weight change or sleep problems Eyes Eyes: No change in vision ENT ENT: No abnormal hearing, difficulty swallowing, mouth lesions, tongue swelling or throat swelling Resp Respiratory: No cough or shortness of breath Cardio Cardiology: No chest pain at rest, chest pain with exertion, shortness of breath or dyspnea on exertion Gastro GI: No difficulty swallowing Genitourinary-Female: No difficulty urinating or burning urination Musc Musculoskeletal: No joint pain, joint swelling, muscle weakness or decreased muscle mass Skin Skin: No hair loss in leg, yellowing of the eye, itchy eyes, rash, skin ulcer or skin swelling Neuro Neurology: No abnormal hearing, abnormal movements, confusion, unsteady gait/balance or memory loss Psych Psychiatric: No anxiety, No confusion and No memory loss Endo Endocrine: No fatigue or weight change Aller/Imm Allergy/Immunologic: No itchy eyes, throat swelling or tongue swelling Tato/Lymp Hematologic/Lymphatic: No easy bleeding, easy bruising or enlarged lymph nodes Exam Const General: cooperative and comfortable Nutritional Appearance: average body habitus and well nourished [facility] Head: normal to inspection Ears: hearing grossly normal bilaterally Nose: external nose normal Face and sinus: normal facial exam Mouth: oral mucosae normal Throat: posterior oropharynx normal Eyes General: appearance normal, both eyes and all related structures Neck Neck: normal visual inspection Chest Chest palpation & inspection: normal inspection of the chest and normal palpation of entire chest wall Resp Effort & Inspection: normal respiratory effort Auscultation: Bilateral: Clear to Auscultation Cardio Palpation: normal PMI Rate: regular rate Rhythm: regular rhythm GI Inspection: normal to inspection Auscultation: normal bowel sounds Percussion: normal to percussion Palpation: no hepatosplenomegaly Skin General: no rashes or lesions noted Neuro General: patient alert Extrem General: normal to inspection Psych Affect: normal affect Quality Reporting Tobacco Screening ([facility] 138) Smoking Status: Never smoker Assessment and Plan Assessment and Plan (1) Non-specific colitis: Plan - Dr. Villalobos Friend, DO: The differential diagnosis for her nonspecific colitis will be ischemic colitis, less likely ulcerative colitis or inflammatory bowel disease. I do not suspect that she had any microscopic or lymphocytic colitis. She is in the age range for collagenous colitis. Because of the weight loss and other symptoms also think about Behcet's syndrome is a small vessel vasculitis. She would have an atypical presentation of eosinophilic gastroenteritis but that is also in the differential diagnosis. (2) Abdominal pain: Status: Acute Orders: Orders: CRP Today LDH Today Angiotensin Convert Enzyme Today ANCA Today Immunoglobulin E Today Immunoglobulin G Today Immunoglobulin M Today Syphilis Antibodies Today Comprehensive Metabolic Profil Today Erythrocyte Sed Rate Today Celiac Disease Profile Today EBV Early Antigen IgG Today EBV Acute Prof IgG / IgM Today CBC W/Diff, Automated Today Hepatitis Panel Acute Today Plan - Dr. Villalobos Friend, DO: The differential diagnosis for abdominal pain would be a H.pylori associated disease.also the diagnosis would be duodenitis, sphincter of Oddi syndrome, less likely median arcuate ligament syndrome. We will perform an upper endoscopy to evaluate her upper GI tract with biopsies. We will also perform biochemical analysis. I have re-examined the patient. There are no clinical changes since date of exam.
[2021-05-23 12:58] VITALS: BP 114/58; BP 122/87; PULSE 137; RESP 18; TEMP 36.7; O2SAT 100
[2021-05-23 13:00] VITALS: BP 111/88; BP 122/87; PULSE 137; RESP 16; O2SAT 100
--- NOTE | 2021-05-23 13:01 | OP.EGD_ITS ---
Patient Name: Promise Lackey Procedure Date: 05/23/2021 12:08 PM Date of : 1990 Age: 30 Procedure: Upper GI endoscopy Indications: Epigastric abdominal pain Providers: Wilfredo Oliveira DO Medicines: Sedation Required Anesthesia Staff Assistance Patient Profile: This is a 30 year old female. Refer to note in patient chart for documentation of history and physical. Patient has symptoms of acute epigastric abdominal pain. Complications: No immediate complications. Procedure: Pre-Anesthesia Assessment: - Prior to the procedure, a History and Physical was performed, and patient medications and allergies were reviewed. The patient is competent. The risks and benefits of the procedure and the sedation options and risks were discussed with the patient. All questions were answered and informed consent was obtained. Patient identification and proposed procedure were verified by the physician. Mental Status Examination: alert and oriented. Airway Examination: normal oropharyngeal airway and neck mobility. Respiratory Examination: clear to auscultation. CV Examination: normal. Prophylactic Antibiotics: The patient does not require prophylactic antibiotics. Prior Anticoagulants: The patient has taken no previous anticoagulant or antiplatelet agents. After reviewing the risks and benefits, the patient was deemed in satisfactory condition to undergo the procedure. The anesthesia plan was to use moderate sedation / analgesia (conscious sedation). Immediately prior to administration of medications, the patient was re-assessed for adequacy to receive sedatives. The heart rate, respiratory rate, oxygen saturations, blood pressure, adequacy of pulmonary ventilation, and response to care were monitored throughout the procedure. The physical status of the patient was re-assessed after the procedure. After obtaining informed consent, the endoscope was passed under direct vision. Throughout the procedure, the patient's blood pressure, pulse, and oxygen saturations were monitored continuously. The Colonoscope was introduced through the mouth, and advanced to the second part of duodenum. The upper GI endoscopy was accomplished without difficulty. The patient tolerated the procedure well. Moderate Sedation: Moderate (conscious) sedation was administered by the endoscopy nurse and supervised by the endoscopist. The patient's oxygen saturation, heart rate, blood pressure and response to care were monitored. Total physician intraservice time was 15 minutes. Scope In: 12:18:20 PM Scope Out: 12:26:28 PM Total Procedure Duration Time 0 hours 8 minutes 8 seconds Findings: LA Grade A (one or more mucosal breaks less than 5 mm, not extending between tops of 2 mucosal folds) esophagitis with no bleeding was found 38 to 40 cm from the incisors. Biopsies were taken with a cold forceps for histology. Verification of patient identification for the specimen was done. Estimated blood loss was minimal. Diffuse mildly erythematous mucosa without bleeding was found in the gastric antrum. Diffuse mildly erythematous mucosa without active bleeding and with no stigmata of bleeding was found in the duodenal bulb. Impression: - LA Grade A reflux esophagitis. Biopsied. - Erythematous mucosa in the antrum. - Erythematous duodenopathy. Recommendation: - Discharge patient to home. - Resume previous diet. - Continue present medications. - Await pathology results. Procedure Code(s): --- Professional --- 43687, Esophagogastroduodenoscopy, flexible, transoral; with biopsy, single or multiple G0500, Moderate sedation services provided by the same physician or other qualified health certified caregiver performing a gastrointestinal endoscopic service that sedation supports, requiring the presence of an independent trained observer to assist in the monitoring of the patient's level of consciousness and physiological status; initial 15 minutes of intra-service time; patient age 5 years or older (additional time may be reported with 44301, as appropriate) CPT copyright 2017 [employer]. All rights reserved. The codes documented in this report are preliminary and upon veneer redrier review may be revised to meet current compliance requirements. Wilfredo Oliveira DO 05/23/2021 1:00:54 PM This report has been signed electronically. Number of Addenda: 1 Note Initiated On: 05/23/2021 12:08 PM Addendum Number: 1 Addendum Date: 11/09/2021 6:38:54 AM MAC was used as sedation for this procedure. Wilfredo Oliveira DO 11/09/2021 6:38:58 AM This report has been signed electronically.
--- NOTE | 2021-05-23 13:02 | OP.CCLET_ITS ---
11/09/2021 Elfego Wu [address] [place] [address] Re : Upper GI endoscopy procedure for Promise Lackey Dear Dr. Wu This procedure was performed on Sunday, May 23, 2021. My impressions and recommendations are as follows: Impressions : - LA Grade A reflux esophagitis. Biopsied. - Erythematous mucosa in the antrum. - Erythematous duodenopathy. Recommendations : - Discharge patient to home. - Resume previous diet. - Continue present medications. - Await pathology results. My findings are described in the full procedure note, which is enclosed. If I can be of further assistance, please feel free to contact me at . Sincerely, Wilfredo Oliveira, 05/23/2021 1:00:54 PM This report has been signed electronically.
[2021-05-23 13:05] VITALS: BP 110/92; BP 122/87; PULSE 115; RESP 18; O2SAT 87
--- NOTE | 2021-05-23 13:08 | OP.COLON_ITS ---
Patient Name: Promise Lackey Procedure Date: 05/23/2021 12:26 PM Date of : 1990 Age: 30 Procedure: Colonoscopy Indications: Generalized abdominal pain, Abnormal CT of the GI tract Providers: Wilfredo Oliveira DO Medicines: Sedation Required Anesthesia Staff Assistance Patient Profile: This is a 30 year old female. Refer to note in patient chart for documentation of history and physical. Patient has symptoms of acute epigastric abdominal pain. Last Colonoscopy: none. The patient's first colonoscopy is today. Complications: No immediate complications. Procedure: Pre-Anesthesia Assessment: - Prior to the procedure, a History and Physical was performed, and patient medications and allergies were reviewed. The patient is competent. The risks and benefits of the procedure and the sedation options and risks were discussed with the patient. All questions were answered and informed consent was obtained. Patient identification and proposed procedure were verified by the physician. Mental Status Examination: alert and oriented. Airway Examination: normal oropharyngeal airway and neck mobility. Respiratory Examination: clear to auscultation. CV Examination: normal. Prophylactic Antibiotics: The patient does not require prophylactic antibiotics. Prior Anticoagulants: The patient has taken no previous anticoagulant or antiplatelet agents. After reviewing the risks and benefits, the patient was deemed in satisfactory condition to undergo the procedure. The anesthesia plan was to use moderate sedation / analgesia (conscious sedation). Immediately prior to administration of medications, the patient was re-assessed for adequacy to receive sedatives. The heart rate, respiratory rate, oxygen saturations, blood pressure, adequacy of pulmonary ventilation, and response to care were monitored throughout the procedure. The physical status of the patient was re-assessed after the procedure. After I obtained informed consent, the scope was passed under direct vision. Throughout the procedure, the patient's blood pressure, pulse, and oxygen saturations were monitored continuously. The Colonoscope was introduced through the anus and advanced to the terminal ileum. The colonoscopy was performed without difficulty. The patient tolerated the procedure well. The quality of the bowel preparation was good. Moderate Sedation: Moderate (conscious) sedation was administered by the endoscopy nurse and supervised by the endoscopist. The patient's oxygen saturation, heart rate, blood pressure and response to care were monitored. Total physician intraservice time was 15 minutes. Scope In: 12:31:09 PM Scope Withdrawal Time 0 hours 13 minutes 22 seconds Scope Out: 12:52:53 PM Total Procedure Duration Time 0 hours 21 minutes 44 seconds Findings: The perianal and digital rectal examinations were normal. An area of mildly congested mucosa was found in the rectum. Biopsies were taken with a cold forceps for histology. Verification of patient identification for the specimen was done. Estimated blood loss was minimal. An area of mildly congested mucosa was found in the descending colon, at the hepatic flexure and in the ascending colon. Biopsies were taken with a cold forceps for histology. Verification of patient identification for the specimen was done. Estimated blood loss was minimal. A patchy area of the terminal ileum was congested. Biopsies were taken with a cold forceps for histology. Verification of patient identification for the specimen was done. Estimated blood loss was minimal. Impression: - Congested mucosa in the rectum. Biopsied. - Congested mucosa in the descending colon, at the hepatic flexure and in the ascending colon. Biopsied. - Congested mucosa in the terminal ileum. Biopsied. Recommendation: - Written discharge instructions were provided to the patient. - The signs and symptoms of potential delayed complications were discussed with the patient. - Patient has a contact number available for emergencies. - Return to normal activities tomorrow. - Resume previous diet. - Continue present medications. - Await pathology results. - Repeat colonoscopy is recommended to check healing. The colonoscopy date will be determined after pathology results from today's exam become available for review. Procedure Code(s): --- Professional --- 97161, Colonoscopy, flexible; with biopsy, single or multiple G0500, Moderate sedation services provided by the same physician or other qualified health childcare worker performing a gastrointestinal endoscopic service that sedation supports, requiring the presence of an independent trained observer to assist in the monitoring of the patient's level of consciousness and physiological status; initial 15 minutes of intra-service time; patient age 5 years or older (additional time may be reported with 43438, as appropriate) CPT copyright 2017 [employer]. All rights reserved. The codes documented in this report are preliminary and upon foot orthopedist review may be revised to meet current compliance requirements. Wilfredo Oliveira DO 05/23/2021 1:07:44 PM This report has been signed electronically. Number of Addenda: 1 Note Initiated On: 05/23/2021 12:26 PM Addendum Number: 1 Addendum Date: 11/09/2021 6:39:06 AM MAC was used as sedation for this procedure. Wilfredo Oliveira DO 11/09/2021 6:39:11 AM This report has been signed electronically.
--- NOTE | 2021-05-23 13:09 | OP.CCLET_ITS ---
11/09/2021 Elfego Wu [address] [place] [address] Re : Colonoscopy procedure for Promise Lackey Dear Dr. Wu This procedure was performed on Sunday, May 23, 2021. My impressions and recommendations are as follows: Impressions : - Congested mucosa in the rectum. Biopsied. - Congested mucosa in the descending colon, at the hepatic flexure and in the ascending colon. Biopsied. - Congested mucosa in the terminal ileum. Biopsied. Recommendations : - Written discharge instructions were provided to the patient. - The signs and symptoms of potential delayed complications were discussed with the patient. - Patient has a contact number available for emergencies. - Return to normal activities tomorrow. - Resume previous diet. - Continue present medications. - Await pathology results. - Repeat colonoscopy is recommended to check healing. The colonoscopy date will be determined after pathology results from today's exam become available for review. My findings are described in the full procedure note, which is enclosed. If I can be of further assistance, please feel free to contact me at . Sincerely, Wilfredo Oliveira, 05/23/2021 1:07:44 PM This report has been signed electronically.
[2021-05-23 13:10] VITALS: BP 120/81; BP 122/87; PULSE 94; RESP 18; TEMP 36.7; O2SAT 96
[2021-05-23 13:35] VITALS: BP 122/87
== END 2021-05-23 23:59 | disposition home or self-care (01) ==
LOC: EN 10:49 → AC 10:49
PROVIDERS: Anesthesiology; PCP Student in an Organized Health Care Education/Training Program; Referring Provider Student in an Organized Health Care Education/Training Program; Visit Provider Internal Medicine Gastroenterology
PROC: 0DJD8ZZ Inspection of Lower Intestinal Tract, Via Natural or Artificial Opening Endoscopic (ICD-10-PCS; CPT 45378; principal; 2021-05-23 11:55)
DX: K29.70 Gastritis, unspecified, without bleeding (principal); K52.9 Noninfective gastroenteritis and colitis, unspecified; K21.00 Gastro-esophageal reflux disease with esophagitis, without bleeding
CPT/HCPCS: 45380; 43239; 81025; 87426; 88305; 88313; 88341; 88342; C9803; J7120

== ENCOUNTER → 2021-06-14 | Outpatient (CLI) | payer MEDICAID, SELFPAY ==
[2021-06-15 17:19] LABS: Calprotectin, Stool 39 ug/g (0-120)
== END | disposition home or self-care (01) ==
LOC: LABSPEC 09:02
PROVIDERS: PCP Student in an Organized Health Care Education/Training Program; Referring Provider Internal Medicine Gastroenterology; Visit Provider Internal Medicine Gastroenterology
DX: R19.7 Diarrhea, unspecified (principal)
CPT/HCPCS: 83630; 83993; 87177; 87209; 87329; 87506

== ENCOUNTER → 2021-08-21 | Outpatient (CLI) | payer MEDICAID, SELFPAY ==
[2021-08-25 08:38] LABS: Pancreatic Elastase, Fecal 411 (>200)
== END | disposition home or self-care (01) ==
PROVIDERS: PCP Student in an Organized Health Care Education/Training Program; Referring Provider Nurse Practitioner Adult Health; Visit Provider Nurse Practitioner Adult Health
DX: R10.9 Unspecified abdominal pain (principal)
CPT/HCPCS: 82653

== ENCOUNTER 2021-09-07 08:41 | Emergency (ER) | payer MEDICAID, SELFPAY ==
[2021-09-07 08:43] VITALS: BP 105/80; PULSE 87; RESP 14; TEMP 36.8; O2SAT 100; BMI 17.9
--- NOTE | 2021-09-07 09:22 | ED.VIS.FEGU ---
HPI <ANTHONY Dutton - Last Filed: 09/07/21 11:29> HPI - Female History of Present Illness Chief Complaint: Female C/O Narrative Narrative: 31-year-old female with history of GERD presents to the emergency department with complaints of vaginal itching, vaginal irritation. Patient states he is concerned because her boyfriend did cheat on her, so she is concerned for some STD involvement. Patient denies any vaginal drainage, foul-smelling urine. Patient denies any back pain, fever or chills. Patient states that she does have history of yeast infection as well as bacterial vaginosis. Patient denies any lower abdominal pain. PFS <ANTHONY Dutton - Last Filed: 09/07/21 11:29> [facility] Medical History Abdominal pain Anxiety Thyroid disease Wears glasses Home Medications norethindrone 0.4 mg-ethinyl estradiol 35 mcg tablet 1 ea PO DAILY 10/02/16 [History Last Taken 12/22/16] duloxetine 30 mg capsule,delayed release 30 mg PO DAILY 05/17/21 [History Last Taken Unknown] spironolactone 50 mg tablet 100 mg PO DAILY 05/17/21 [History Last Taken Unknown] pantoprazole 40 mg tablet,delayed release (Protonix) 40 mg PO DAILY #30 tabs 08/15/21 [Rx Last Taken Unknown] metronidazole 500 mg tablet 500 mg PO BID #7 tabs 09/07/21 [Rx Last Taken Unknown] Allergy/AdvReac Type Severity Reaction Status Date / Time bacitracin AdvReac Itching Verified 09/07/21 08:43 [From Neosporin ([id number])] neomycin AdvReac Itching Verified 09/07/21 08:43 [From Neosporin ([id number])] nickel AdvReac Rash Verified 09/07/21 08:43 polymyxin B AdvReac Itching Verified 09/07/21 08:43 [From Neosporin ([id number])] Sulfa (Sulfonamide AdvReac Itching Verified 09/07/21 08:43 Antibiotics) Social History Smoking Status: Never smoker alcohol intake: current alcohol intake frequency: holidays/special occasions only ROS <ANTHONY Dutton - Last Filed: 09/07/21 11:29> ROS ED ROS Narrative Constitutional: Negative for fever, chills, weight loss, weakness Eyes: Negative for vision loss, vision change, double vision ENT: Negative for any sore throat, ear pain, congestion Cardiovascular: Negative for any chest pain, tightness, palpitations Respiratory: Negative for any cough, sputum production, hemoptysis, dyspnea, dyspnea on exertion, orthopnea Gastrointestinal: Negative for any abdominal pain, nausea, vomiting, diarrhea, constipation, blood in stool, blood in vomit : Negative for any urinary frequency, dysuria, retention, blood in urine. Positive for vaginal irritation, vaginal itching Muscle skeletal: Negative for any muscle joint pain, stiffness, myalgias, arthralgias, neck pain, back pain Neurological: Negative for any headache, syncope, numbness or tingling, dizziness Skin: Negative for any rashes, lumps, itching, abrasions, lacerations Psychiatric: Negative for any depression, anxiety, stress, suicidal ideation, homicidal ideation Hematologic: Negative for any easy bruising, excessive bruising, easy bleeding Allergies: Negative for any eczema, hives, rash EXAM <ANTHONY Dutton - Last Filed: 09/07/21 11:29> Physical Exam Narrative Exam Narrative: Vital signs reviewed. HEET: Head normocephalic atraumatic, TMs clear bilaterally. Posterior pharynx is clear, moist mucous membranes. Nares clear bilaterally. Neck: Supple with no lymphadenopathy or tenderness. No signs of meningismus, negative jolt sign. Cardiac: Regular rate and rhythm no murmurs gallops or rubs, equal peripheral pulses bilaterally. Respiratory: Lungs clear to auscultation bilaterally. No chest tenderness. Abdomen: Soft, nontender, nondistended. No abdominal bruit or pulsatile masses. No hepatosplenomegaly Extremities: No peripheral edema, no signs of gross trauma or deformity. Active full range of motion of all extremities. Neuro: Cranial nerves II through XII intact, no focal neurological deficits. Skin: Clean dry and intact with no rash, purpura, petechiae, vesicles or pustules. Backs/flank: No CVA tenderness, no midline spinal tenderness, no deformity. Psych: Normal mood and affect. No SI, HI or acute psychosis. : Pelvic exam was completed with 2 female nurse pork cutlet maker's. There was copious amounts of white thick discharge. Slight blood noted. Negative for any cervical motion tenderness. Negative for any lesions exteriorly. Manual exam yielded no gross abnormality. Const Vital Signs: 09/07/21 08:43 09/07/21 10:47 Temperature 98.2 F Temperature Source Temporal Pulse Rate 87 Respiratory Rate 14 16 Blood Pressure 105/80 Blood Pressure Mean 88 Pulse Ox 100 Oxygen Delivery Method Room Air <Dr. Jordin Kruger, DO - Last Filed: 09/07/21 11:54> Physical Exam Const Vital Signs: 09/07/21 08:43 09/07/21 10:47 Temperature 98.2 F Temperature Source Temporal Pulse Rate 87 Respiratory Rate 14 16 Blood Pressure 105/80 Blood Pressure Mean 88 Pulse Ox 100 Oxygen Delivery Method Room Air [facility] <CIELO DuttonC - Last Filed: 09/07/21 11:29> [facility] Narrative Medical decision making narrative: Patient appears well, patient appears nontoxic, vital signs are stable. Patient presents to the emergency department with complaints of vaginal drainage, vaginal irritation. Patient received a physical examination, pelvic exam, it was consistent with bacterial vaginosis, however patient was positive for chlamydia. Patient will be given IM ceftriaxone, azithromycin, she will also be given 1 week of Flagyl. She is instructed to return for any worsening symptoms. She instructed to refrain from sex for 2 weeks. Patient stable for discharge Lab Data Attestation: I reviewed the patient's lab results. Labs: Laboratory Results - last 24 hr 09/07/21 09/07/21 09:10 09:10 Urine Color Yellow Urine Clarity Cloudy Urine pH 6.0 Ur Specific [place] 1.015 Urine Protein 15 H Urine Glucose (UA) Normal Urine Ketones 5 H Urine Occult Blood 25 H Urine Nitrite Negative Urine Bilirubin Negative Urine Urobilinogen 1 H Ur Leukocyte Esterase 500 H Urine RBC 0-5 SEEN Urine WBC 25-50 SEEN Ur Squamous Epith Cells 0-5 SEEN Urine Bacteria 1+ Urine Mucus 1+ Urine Test Negative Chlam trachomat DNA PCR POSITIVE H N.gonorrhoeae DNA (PCR) Negative <Dr. Jordin Kruger, DO - Last Filed: 09/07/21 11:54> [facility] Lab Data Labs: Laboratory Results - last 24 hr 09/07/21 09/07/21 09:10 09:10 Urine Color Yellow Urine Clarity Cloudy Urine pH 6.0 Ur Specific [place] 1.015 Urine Protein 15 H Urine Glucose (UA) Normal Urine Ketones 5 H Urine Occult Blood 25 H Urine Nitrite Negative Urine Bilirubin Negative Urine Urobilinogen 1 H Ur Leukocyte Esterase 500 H Urine RBC 0-5 SEEN Urine WBC 25-50 SEEN Ur Squamous Epith Cells 0-5 SEEN Urine Bacteria 1+ Urine Mucus 1+ Urine Test Negative Chlam trachomat DNA PCR POSITIVE H N.gonorrhoeae DNA (PCR) Negative Treatment and Re-Evaluation Narrative: I have personally performed a face to face assessment of the patient and have reviewed the YANG Note. I performed a substantive portion of the visit including all aspects of the following. My dominique findings include: History: Patient presents with vaginal discharge. Patient states that her ex-boyfriend cheated on her. Patient admits to some irritation and itching in the vaginal area. Patient denies any dysuria or hematuria. Patient denies any abdominal pain. Patient denies any nausea or vomiting. Patient denies any fevers or chills. Exam: Vital signs are stable. Patient is afebrile. Patient is in no acute distress. Heart was regular rate and rhythm. Lungs are clear and equal bilaterally. Abdomen is soft. Bowel sounds are normal. There is no tenderness. Cranial nerves II through XII are intact. There are no focal motor or sensory deficits noted. Medical Decision Making: Urinalysis shows a leukocyte esterases of 500 with 25-50 white blood cells tears. Urine hCG was negative. Gonorrhea was negative. Chlamydia was positive. Patient was given Rocephin and Zithromax here. Patient was given a prescription for Flagyl. Patient was instructed to avoid alcohol while taking the Flagyl. Patient was instructed to follow-up with her primary care physician in 5 to 7 days. Patient understood and was agreeable with the plan. All questions were answered. Discharge Plan Triage Chief Complaint: Female C/O ED Midlevel Provider: Abdon Carson ED Provider: Jordin Kruger Dx/Rx/DC Orders Clinical Impression: Purulent vaginal discharge, Chlamydia, Bacterial vaginosis Instructions: Chlamydia, Bacterial Vaginosis Prescriptions: New metronidazole 500 mg tablet 500 mg PO BID Qty: 7 0RF No Action norethindrone-ethin estradiol 1 EACH tablet 1 ea PO DAILY spironolactone 50 mg tablet 100 mg PO DAILY Label Comments: take 2 tablets by mouth once daily duloxetine 30 mg capsule,delayed release(DR/EC) 30 mg PO DAILY Label Comments: take 1 capsule by mouth once daily pantoprazole [Protonix] 40 mg tablet,delayed release (DR/EC) 40 mg PO DAILY Qty: 30 2RF Primary Care Provider: Elfego Wu Referrals: Elfego Wu DO [Primary Care Provider] - Activity Restrictions/Additional Instructions: Take all of your medications. Refrain from sex for 2 weeks until symptoms resolve Print Language: Belarusian Disposition Disposition: Home, Self Care
[2021-09-07 09:36] LABS: Color, Urine Yellow (Yellow); Glucose, Dipstick Normal (Normal); Ketone-Dipstick 5 mg/dl (Negative); Leukocyte Esterase-Dipstick 500 /ul (Negative); Nitrite-Dipstick Negative (Negative); Occult Blood-Urine 25 /ul (Negative); Protein-Dipstick 15 mg/dl (Negative); Specific Gravity, Urine 1.015 (1.002-1.030); Urine Bilirubin Dipstick Negative (Negative); Urine Clarity Cloudy (Clear); Urine Urobilinogen 1 mg/dl (Normal)
[2021-09-07 09:46] LABS: Bacteria 1+ /hpf (None Seen); Mucous, Urine 1+ /hpf (<or=2+); Red Blood Cells-Urine 0-5 SEEN /hpf (0-5); Squamous Epithelial Cells - UA 0-5 SEEN /hpf (5-10); White Blood Cells 25-50 SEEN /hpf (0-5)
[2021-09-07 09:47] LABS: Internal QC Validated? YES +Cl - CLEAR BKGD; Pregnancy, Urine Negative Negative
[2021-09-07 10:47] VITALS: RESP 16
[2021-09-07 11:15] LABS: Chlamydia Trachomatis by PCR POSITIVE (Negative); Neisserai gonorrhoeae by PCR Negative (Negative); Probe Check PASS; Sample Adequacy Control PASS; Specimen Processing Control PASS
[2021-09-07] MEDS: Azithromycin 250 MG Tablet 1000 MG PO (12:14)
[2021-09-07] MEDS: Ceftriaxone 500 MG Vial IM (12:15)
[2021-09-07 12:39] VITALS: PULSE 79; RESP 16; O2SAT 99
== END 2021-09-07 12:39 | disposition home or self-care (01) ==
PROVIDERS: Nurse Practitioner; Emergency Provider Emergency Medicine; PCP Student in an Organized Health Care Education/Training Program; Visit Provider Emergency Medicine
DX: N76.0 Acute vaginitis (principal); F41.9 Anxiety disorder, unspecified; E07.9 Disorder of thyroid, unspecified; Z79.899 Other long term (current) drug therapy; B96.89 Other specified bacterial agents as the cause of diseases classified elsewhere; A56.02 Chlamydial vulvovaginitis
CPT/HCPCS: 81001; 81025; 87210; 87491; 87591; 96372; 99283

== ENCOUNTER → 2021-10-12 | Outpatient (CLI) | payer MEDICAID, SELFPAY ==
--- NOTE | 2021-10-12 08:52 | NM_ITS ---
CLINICAL: 31-year-old female with history of chronic nausea and early satiety. SEMI-SOLID PHASE 99m Tc SULFUR COLLOID GASTRIC EMPTYING STUDY COMPARISON: None available FINDINGS: The patient was administered 1.0 mCi of 99m Tc sulfur colloid mixed with oatmeal and consumed per os. Image acquisitions in the anterior-posterior projections were obtained for 60 minutes. There is prompt visualization of the stomach. There is no gastroesophageal reflux identified. The T ? emptying was calculated to be 35.30 minutes, (Normal: 12-56 minutes). NM/Gastric Emptying Study IMPRESSION: 1. NORMAL 99m Tc sulfur colloid semi-solid phase (oatmeal) gastric emptying imaging examination. A. There is normal and preserved semi-solid phase gastric emptying compared to normal controls. (Jordy et al, J Nucl Med Tech 38: 186, 2010). Electronically Signed: Damir Varner, at 22:13 EDT ,
[2021-10-12 10:51] LABS: Erythrocyte Sedimentation Rate 4 mm/hr (0-30)
[2021-10-12 10:53] LABS: Absolute Lymphocyte Count 2.36 X10^3/uL (0.83-4.51); Absolute Neutrophil Count 2.3 X10^3/uL (2.0-7.7); Basophil# 0.02 X10^3/uL; Basophil% 0.4 % (0-1); Eosinophil# 0.07 X10^3/uL; Eosinophils% 1.3 % (0-5); Hematocrit 40.9 % (37-47); Hemoglobin 13.9 g/dL (12.0-15.0); Lymphocyte # 2.36 X10^3/ul (0.83-4.51); Lymphocyte % 45.2 % (19-41); Mean Corpuscular Hgb 31.7 pg (27.0-32.0); Mean Corpuscular Volume 93.4 fL (81-99); Mean Platelet Vol. 10.2 fl (6.2-12.0); Monocyte% 9.6 % (0-10); NRBC Flagged by Analyzer 0 % (0-5); Neutrophil # 2.27 X10^3/uL (2.7-7.7); Neutrophil % 43.5 % (47-70); Platelet Count 269 K/mm3 (150-450); RBC Distribution Width CV 12.6 % (11.6-14.6); RBC Distribution Width SD 43.6 fl (35.1-43.9); Red Blood Count 4.38 M/mm3 (4.2-5.4); White Blood Count 5.2 K/mm3 (4.4-11.0)
[2021-10-12 11:31] LABS: ALB/GLOB Ratio 0.9 RATIO (0.9-2.4); AST(SGOT) 11 U/L (15-37); Alanine Aminotransfer ALT/SGPT 14 U/L (13-56); Albumin, Serum 3.3 g/dL (3.2-5.0); Alkaline Phosphatase 62 U/L (45-117); Anion Gap 8 (5-15); BUN 10 mg/dL (7-18); BUN/Creat Ratio 13.5 RATIO (10-20); CRP < 2.90 mg/L (0.0-3.0); Calcium,Total 8.5 mg/dL (8.5-10.1); Chloride 106 mmol/L (98-107); Creatinine, Serum 0.74 mg/dL (0.55-1.02); EST Glomerular Filtration Rate 97 mL/min (>60); Est Glom Filt Rate - Afr Amer 118 mL/min (>60); Free T3 2.7 pg/mL (2.18-3.98); Globulin 3.6 g/dL (2.2-4.2); Glucose 79 mg/dL (74-106); Potassium 3.7 mmol/L (3.5-5.1); Protein, Total 6.9 g/dL (6.4-8.2); Sodium Level 141 mmol/L (136-145); T4 Free Direct 0.97 ng/dL (0.76-1.46); Thyroid Stim Hormone (TSH) 2.93 uIU/mL (0.358-3.74)
== END | disposition home or self-care (01) ==
LOC: NM 08:37
PROVIDERS: PCP Student in an Organized Health Care Education/Training Program; Referring Provider Nurse Practitioner Adult Health; Visit Provider Nurse Practitioner Adult Health
DX: R11.2 Nausea with vomiting, unspecified (principal); R19.7 Diarrhea, unspecified
CPT/HCPCS: 36415; 78264; 80053; 84439; 84443; 84481; 85025; 85652; 86140; A9541

== ENCOUNTER 2022-05-16 07:52 | Day surgery (SDC) | payer MEDICAID, SELFPAY ==
[2022-05-16] VITALS (7 sets, daily range): BP systolic 104–112; BP diastolic 69–78; PULSE 70–90; RESP 12–16; TEMP 36.5–36.6; O2SAT 95–100; BMI 18.1
--- NOTE | 2022-05-16 | EGD_PTH ---
PATIENT: BIJU HOWARD LOC: EN U#:[id number] AGE/SX: 31/F ROOM: RE05/16/[address]: Dr. Wilfredo Oliveira DO : 1990 BED: DIS: 05/16/2022 SPEC #: [id number] RECD: 05/16/22 12:37 STATUS: NITIN REQ #: [id number] [place]: 05/16/22 00:[address]: Wilfredo Oliveira DEPT: SURGICAL PATHOLOGY RECD BY: Oj Murrieta ENTERED: 05/16/22 12:37 SP TYPE: EGD BIOPSY RAQUEL DR: Dr. 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 Duodenum biopsy, B ? Distal esophagus biopsy MICROSCOPIC DIAGNOSIS A. 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 B. Distal esophagus, biopsy: Gastroesophageal junctional mucosa with chronic inflammation. Focal changes of reflux. No evidence of goblet cell metaplasia. See comment. AM:karis 05/17/2022 COMMENT B. Alcian blue/PAS stain with matched control supports the above diagnosis. MICROSCOPIC DESCRIPTION Slides are reviewed. GROSS DESCRIPTION A - Received in fixative is one container labeled with the patient's name and designated duodenum biopsy. The specimen consists of one irregular fragment of light barnes soft tissue that measures 0.6 x 0.2 x 0.2 cm. The specimen is totally submitted in one cassette. B - Received in fixative is one container labeled with the patient's name and designated distal esophagus. The specimen consists of multiple irregular fragments of light barnes soft tissue that in aggregate measure 1.0 x 0.5 x 0.1 cm. The specimen is totally submitted in one cassette. / AM:karis 05/16/2022 TC:3 CPT: 96047 x2, 78803
[2022-05-16] MEDS: Lactated Ringers 1,000 ML 15 ML IV (08:15)
[2022-05-16 08:32] LABS: Internal QC Validated? YES +Cl - CLEAR BKGD; Pregnancy, Urine Negative Negative
--- NOTE | 2022-05-16 08:44 | PCM.HP.BLA ---
History and Physical Date of Admission: 05/16/22 31 F who presents to the office today for 6 month f/u Doyle's esophagus, chronic nausea, abdominal pain, alternating diarrhea and constipation.? She reports she is doing very well.? She takes pantoprazole 40 mg every morning.? Denies heartburn, acid reflux, dysphagia.? She has not been having any nausea or vomiting.? She no longer needs scopolamine patch.? She has no abdominal pain.? Her bowels are regular, she is having a daily bowel movement, it is formed.? No melena or hematochezia. She notes an intermittent dry cough.? She does note her nose runs at work, she thinks because of the dry atmosphere.? She is working in a correction.? She thinks it has been helpful to return to work because now she does not have time to focus on her GI symptoms.? She does report being very tired and very stiff in the mornings. She will be due for repeat EGD in spring 2022.? She established with us in March 2021 for nausea and weight loss.? She had severe nausea to the point where she was unable to eat, as well as significant abdominal pain, weight loss of 16 pounds, diarrhea.? Her symptoms began in late 2020.? She had had a CT of the abdomen and pelvis in February 2021 which found diffuse mild wall thickening and surrounding inflammatory change throughout the colon and rectum.? Dr. Oliveira performed EGD and colonoscopy in May 2021: She had esophagitis with metaplasia consistent with Doyle's esophagus, gastritis, duodenopathy, H. pylori negative, as well as congested mucosa of rectum, descending colon, hepatic flexure and ascending colon. Biochemical workup 04.04.21 found EBV capsid Ag and EBV nuclear Ag ab elevated; CRP .40; sodium [id number] and decreased potassium 3.4; globulin decreased 4.6. ESR, LDH, ALLISON, GAME, DAVID comp, ANCA, Hepatitis screen WNL. 10/2021 Labs: CBC unremarkable, CMP unremarkable, thyroid labs normal 10/2021 Gastric emptying study normal ROS Const Constitutional: Positive for fatigue ENT ENT: No difficulty swallowing Gastro GI: No abdominal pain, belching, bloating, change in bowel habits, change in stool character, coffee ground emesis, constipation, cramping, diarrhea, heartburn, difficulty swallowing, feeling full early, excessive flatus, incontinent of stools, Vomiting blood/hematemesis, Blood in stool, loose stools, Black,tarry stools, nausea/dyspepsia, pain with swallowing, vomiting or other Musc Musculoskeletal: Positive for joint pain and back pain Skin Skin: No yellowing of the eye or itchy eyes Psych Psychiatric: No anxiety and No depression Endo Endocrine: Positive for fatigue Aller/Imm Allergy/Immunologic: No itchy eyes Tato/Lymp Hematologic/Lymphatic: No easy bleeding or easy bruising Exam Const General: cooperative and comfortable Nutritional Appearance: thin Orientation: alert, awake and oriented x3 Quality Reporting Tobacco Screening ([facility] 138) Smoking Status: Never smoker Assessment and Plan Assessment and Plan (1) Doyle's esophagus: ?Status:?Acute ?Plan: 31-year-old female with Doyle's esophagus, taking pantoprazole 40 mg every morning, due for repeat EGD in May 2022, she will have follow-up office visit 2 weeks later.? She no longer has chronic nausea, abdominal pain, alternating diarrhea and constipation. I have examined the patient and the H&P has been reviewed. There are no clinical changes since date of exam.
--- NOTE | 2022-05-16 09:06 | OP.EGD_ITS ---
Patient Name: Promise Lackey Procedure Date: 05/16/2022 8:46 AM Date of : 1990 Age: 31 Procedure: Upper GI endoscopy Indications: Doyle's esophagus Providers: Wilfredo Oliveira DO Referring MD: Wilfredo Oliveira DO Medicines: Monitored Anesthesia Care Patient Profile: This is a 31 year old female. Refer to note in patient chart for documentation of history and physical. Patient has symptoms of chronic heartburn. Complications: No immediate complications. Procedure: Pre-Anesthesia Assessment: - Prior to the procedure, a History and Physical was performed, and patient medications and allergies were reviewed. The patient is competent. The risks and benefits of the procedure and the sedation options and risks were discussed with the patient. All questions were answered and informed consent was obtained. Patient identification and proposed procedure were verified by the physician. Mental Status Examination: normal. CV Examination: normal. Prophylactic Antibiotics: The patient does not require prophylactic antibiotics. Prior Anticoagulants: The patient has taken no previous anticoagulant or antiplatelet agents. ASA Grade Assessment: II - A patient with mild systemic disease. After reviewing the risks and benefits, the patient was deemed in satisfactory condition to undergo the procedure. The anesthesia plan was to use monitored anesthesia care (MAC). Immediately prior to administration of medications, the patient was re-assessed for adequacy to receive sedatives. The heart rate, respiratory rate, oxygen saturations, blood pressure, adequacy of pulmonary ventilation, and response to care were monitored throughout the procedure. The physical status of the patient was re-assessed after the procedure. After obtaining informed consent, the endoscope was passed under direct vision. Throughout the procedure, the patient's blood pressure, pulse, and oxygen saturations were monitored continuously. The Endoscope was introduced through the mouth, and advanced to the second part of duodenum. The upper GI endoscopy was accomplished without difficulty. The patient tolerated the procedure well. Scope In: 8:55:36 AM Scope Out: 8:59:37 AM Total Procedure Duration Time 0 hours 4 minutes 1 second Findings: The Z-line was irregular and was found 37 cm from the incisors. Biopsies were taken with a cold forceps for histology. The entire examined stomach was normal. Patchy mildly erythematous mucosa without active bleeding and with no stigmata of bleeding was found in the duodenal bulb. Biopsies were taken with a cold forceps for histology. Verification of patient identification for the specimen was done. Impression: - Z-line irregular, 37 cm from the incisors. Biopsied. - Normal stomach. - Erythematous duodenopathy. Biopsied. Recommendation: - Await pathology results. - Continue present medications. Procedure Code(s): --- Professional --- 77515, Esophagogastroduodenoscopy, flexible, transoral; with biopsy, single or multiple CPT copyright 2017 [employer]. All rights reserved. The codes documented in this report are preliminary and upon head of it review may be revised to meet current compliance requirements. Wilfredo Oliveira DO 05/16/2022 9:06:00 AM This report has been signed electronically. Number of Addenda: 0 Note Initiated On: 05/16/2022 8:46 AM
--- NOTE | 2022-05-16 09:07 | OP.CCLET_ITS ---
05/16/2022 Elfego Wu [address] [place] [address] Re : Upper GI endoscopy procedure for Promise Lackey Dear Dr. Wu This procedure was performed on Monday, May 16, 2022. My impressions and recommendations are as follows: Impressions : - Z-line irregular, 37 cm from the incisors. Biopsied. - Normal stomach. - Erythematous duodenopathy. Biopsied. Recommendations : - Await pathology results. - Continue present medications. My findings are described in the full procedure note, which is enclosed. If I can be of further assistance, please feel free to contact me at . Sincerely, Wilfredo Oliveira, 05/16/2022 9:06:00 AM This report has been signed electronically.
== END 2022-05-16 09:58 | disposition home or self-care (01) ==
LOC: EN 07:54 → AC 07:55
PROVIDERS: Anesthesiology; PCP Student in an Organized Health Care Education/Training Program; Referring Provider Student in an Organized Health Care Education/Training Program; Visit Provider Internal Medicine Gastroenterology
PROC: 0DJ08ZZ Inspection of Upper Intestinal Tract, Via Natural or Artificial Opening Endoscopic (ICD-10-PCS; CPT 43235; principal; 2022-05-16 08:55)
DX: K22.70 Barrett's esophagus without dysplasia (principal); R53.83 Other fatigue
CPT/HCPCS: 43239; 81025; 88305; 88313; J7120; J2405

== ENCOUNTER → 2023-03-21 | Outpatient (CLI) | payer MEDICAID, SELFPAY ==
[2023-03-28 00:06] LABS: Beef <0.10 kU/L (Class 0); Chocolate <0.10 kU/L (Class 0); Codfish <0.10 kU/L (Class 0); Corn <0.10 kU/L (Class 0); Egg, Whole <0.10 kU/L (Class 0); Milk (Cow) <0.10 kU/L (Class 0); Mussels <0.10 kU/L (Class 0); Peanut <0.10 kU/L (Class 0); Pork <0.10 kU/L (Class 0); Salmon <0.10 kU/L (Class 0); Shrimp <0.10 kU/L (Class 0); Soybean <0.10 kU/L (Class 0); Tuna <0.10 kU/L (Class 0); Wheat <0.10 kU/L (Class 0)
== END | disposition home or self-care (01) ==
PROVIDERS: PCP Student in an Organized Health Care Education/Training Program; Referring Provider Internal Medicine Gastroenterology; Visit Provider Internal Medicine Gastroenterology
DX: K21.9 Gastro-esophageal reflux disease without esophagitis (principal)
CPT/HCPCS: 36415; 86003; 86005